=== PATIENT | female | born 1960 | race Native Hawaiian/Other Pacific Islander ===

== ENCOUNTER 2025-05-30 08:28 | Outpatient (CLI) | payer MEDICARE, SELFPAY ==
--- NOTE | 2025-05-30 09:19 | ECG_ITS ---
Test Date: 2025-05-30 09:36:34 Measurements Intervals [place] Rate: 58 P: 57 [place]: 181 QRS: 43 QRSD: 85 T: 153 QT: 399 QTc: 395 Interpretive Statements SINUS BRADYCARDIA POSSIBLE LEFT ATRIAL ENLARGEMENT [-0.1mV P WAVE IN V1/V2] LEFT VENTRICULAR HYPERTROPHY AND ST-T CHANGE [VOLTAGE CRITERIA PLUS ST/T ABNORMALITY] No previous ECG available for comparison Electronically Signed On 05-30-2025 14:43:37 CDT by Donato Celaya M.D.
--- OUTSIDE RECORDS SUMMARY | 2025-05-30 09:40 | XMS_ITS ---
Author Organization [facility] Address [address] [place] [address] Care Team Providers Care Sap Crm Developer Name Role Phone Erasmo Baird MD Unavailable [phone] Darío Peña MD Unavailable [phone] Riya Byrd RN Unavailable Jack Thompson DO Primary Care Provider [phone] Dialysis Access Sites Type Status Location Placement Date Removal Da te Peritoneal Dialysis Catheter Manual Right lower abdomen Inactive Right Abdomen (side) - Lower 08/27/2017 04/02/2024 Procedures Procedure Name Priority Date/Time Associated Diagnosis Comments ALT Routine 05/24/2025 9:23 AM CDT PROTEIN, TOTAL Routine 05/23/2025 9:34 AM CDT BILIRUBIN, TOTAL Routine 05/23/2025 9:25 AM CDT AST Routine 05/23/2025 9:22 AM CDT RENAL FUNCTION PANEL Routine 05/23/2025 8:29 AM CDT CBC WITH AUTO DIFFERENTIAL Routine 05/23/2025 8:29 AM CDT LIPID PANEL Routine 05/23/2025 8:26 AM CDT CBC WITH AUTO DIFFERENTIAL Routine 03/28/2025 8:33 AM CDT PTH Routine 03/28/2025 8:33 AM CDT RENAL FUNCTION PANEL Routine 03/28/2025 8:33 AM CDT BK VIRUS, DNA, QUANTITATIVE Routine 03/28/2025 8:33 AM CDT CBC WITH AUTO DIFFERENTIAL Routine 03/07/2025 12:22 PM CDT RENAL FUNCTION PANEL Routine 03/07/2025 12:22 PM CDT TACROLIMUS LEVEL, RANDOM Routine 03/07/2025 12:22 PM CDT BK VIRUS, DNA, QUANTITATIVE Routine 03/07/2025 12:22 PM CDT POCT URINALYSIS DIPSTICK Routine 03/01/2025 9:22 AM CDT Kidney replaced by transplant HEPATITIS C RNA, QUANTITATIVE, PCR Routine 05/04/2024 10:21 AM CDT Inconclusive laboratory evidence of human immunodeficiency virus (HIV) Aftercare following organ transplant SCREENING MAMMOGRAM 2D BILATERAL Schedule Routine, Read Routine (OP Routine) 08/26/2018 from Last 3 Months or Most Recently Relevant to Health Maintenance Allergies Active Allergy Reactions Criticality Noted Date Comments Bee Pollen Eye irritation Low 02/20/2018 Escitalopram Rash Medium 11/26/2022 Lisinopril Cough Low 09/26/2020 No Known Allergies Other (See comments) Low Reaction: Medications docusate sodium (COLACE) 50 mg capsuleIndications:co nstipation Take 1 capsule (50 mg total) by mouth 2 (two) times a day as needed for constipation Active diphenhydrAMINE 25 mg capsuleIndications:in somnia Take 1 tablet/capsule (25 mg total) by mouth every 6 (six) hours as needed for allergies Active aspirin 81 mg enteric coated tabletIndications:pre vention of thrombosis Take 1 tablet (81 mg total) by mouth daily 30 tablet 11 2023 Active amLODIPine (NORVASC) 10 mg tabletIndications:hyp ertension Take 1 tablet (10 mg total) by mouth daily 90 tablet 1 09/[address] (MYFORTIC) 360 mg EC tabletIndications:Pre vention of Kidney Transplant Rejection Take 1 tablet (360 mg total) by mouth 2 (two) times a day 180 tablet 3 03/01 Active tacrolimus XR (ENVARSUS XR) 1 mg tablet extended release 24 hrIndications:immunos uppression Take 5 tablets (5 mg total) by mouth daily 150 tablet 11 03/08 Active rosuvastatin (CRESTOR) 10 mg tablet Take 1 tablet (10 mg total) by mouth nightly 90 tablet [address] (PROTONIX) 40 mg EC tablet TAKE ONE TABLET BY MOUTH EVERY DAY 30 tablet 2024 Active predniSONE (DELTASONE) 5 mg tablet TAKE ONE TABLET BY MOUTH EVERY DAY 30 tablet 2024 Active Phospha 250 Neutral 250 mg tablet TAKE ONE TABLET BY MOUTH TWICE A DAY 60 tablet 2024 Active cinacalcet (SENSIPAR) 30 mg tablet TAKE ONE TABLET BY MOUTH EVERY DAY 30 tablet 2024 Active sulfamethoxazole-trim ethoprim (BACTRIM DS) 800-160 mg per tabletIndications:Pro phylaxis, Medical,Urinary Tract/Genitourinary Infection Take 1 tablet (160 mg of trimethoprim total) by mouth 3 (three) times a week 05/11 Discontinued cinacalcet (SENSIPAR) 30 mg tabletIndications:hyp ercalcemia due to primary hyperparathyroidism Take 1 tablet (30 mg total) by mouth daily 30 tablet 11 05/11 Discontinued sodium phosphate - potassium phosphate (K-PHOS NEUTRAL) 250 mg tabletIndications:Tj cium Renal Calculi Prevention,hypophosph atemia Take 2 tablets (500 mg total) by mouth 2 (two) times a day with meals 05/11 Discontinued sulfamethoxazole-trim ethoprim (BACTRIM DS) 800-160 mg per tablet TAKE ONE TABLET BY MOUTH EVERY DAY 30 tablet 11 05/11 Discontinued( Therapy completed) Active Problems Patient Care Coordination No te Formatting of this note migh t be different from the original. Discharge Planning: Outpatient Labs: [place] [facility]: [facility]- delayed start Sat 04/09 LAB: [facility] P: [phone]; F: [phone] S/O'S MONTHLY: FK; Q3: ROUTINE (06-15-2025) Verbal Consent - spouse Jeff, and daughter Magy Problem Noted Date Diagnosed Date Complicated UTI (urinary tract infection) 2023 Assessment & Plan (04/29/2024 6:26 PM CDT): Patient presented with chills since 04/18, at ED BP 93/59, labs wbc 5.2, cr 0.96, p 1.7, UA WBC > 50, RBC 11-20, bacteria 2+, LE 3+, protein 2+. CT in ED c/w fat stranding around renal transplant c/f pyelo. Received cefepime and vanc in ED - discontinued vanco on 04/27 - stop iv cefepime - urine growing e coli, sensitive to keflex will plan to discharge today on that to complete total 10 day course - blood cultures NGTD Assessment & Plan (04/27/2024 4:33 AM CDT): Has symptoms of dysuria, chills since 04/18, at ED BP 93/59, labs wbc 5.2, cr 0.96, p 1.7, UA WBC > 50, RBC 11-20, bacteria 2+, LE 3+, protein 2+. Received cefepime and vanc at ED. -cw vanc and cefepime -fw UC and BC, fw MRSA nasal swab -hold home BP meds iso sepsis Hypophosphatemia 04/27/2024 Assessment & Plan (04/28/2024 12:33 PM CDT): Repleting phos orally Assessment & Plan (04/27/2024 4:20 AM CDT): P 1.7, recommended 10 mmol of NaPhos by renal transplant, but couldn't be ordered as its restricted Sw KPhos 500 mg BID Dysuria 04/26/2024 ESRD on peritoneal dialysis 09/03/2023 Hypertensive urgency 09/01/2023 Shortness of breath 09/01/2023 Pre-transplant evaluation for kidney transplant 07/31/2023 Hyperkalemia 05/19/2023 Sinus bradycardia 05/19/2023 Abdominal pain 05/17/2023 Anemia of chronic renal failure 03/19/2023 Renal osteodystrophy 03/19/2023 Secondary hyperparathyroidism of renal origin Iron deficiency anemia, unspecified 03/19/2023 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 01/15/2023 Generalized abdominal pain 10/29/2022 Hypertension, essential 10/29/2022 Assessment & Plan (04/29/2024 6:27 PM CDT): At home on amlodipine 10 mg and carvedilol 12.5 mg BID , Hold home BP meds iso concern for sepsis - resume home amlodipine at discharge, will hold other meds until f/up Assessment & Plan (04/27/2024 4:35 AM CDT): At home on amlodipine 10 mg and carvedilol 12.5 mg BID , Hold home BP meds iso concern for sepsis Suicidal ideation 10/29/2022 Anemia in end-stage renal disease 10/29/2022 Typhlitis 10/28/2022 Chest discomfort 06/23/2022 Mixed hyperlipidemia 06/23/2022 Gastroesophageal reflux disease without esophagi tis 06/23/2022 Renal transplant, status post 05/25/2022 Assessment & Plan (04/29/2024 6:26 PM CDT): 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 US renal with Doppler 04/26- No Doppler evidence of transplant renal artery stenosis. Diffusely increased parenchymal vascularity of the right iliac fossa renal transplant kidney. In the setting of the positive urinalysis and sepsis, findings are concerning for pyelonephritis. 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 US renal with Doppler 04/26- No Doppler evidence of transplant renal artery stenosis.Diffusely increased parenchymal vascularity of the right iliac fossa renal transplant kidney. In the setting of the positive urinalysis and sepsis, findings are concerning for pyelonephritis. Tiny 2.6 cm perinephric fluid collection - fw renal transplant - on tacrolimus 8 daily -tacrolimus target 7-10, fw tacrolimus trough at 5 am (random last night was 17 and morning on 04/25 was 8.9) - cw prednisone 5 mg po daily - hold bactrim of infection prophylaxis while pt is on abx for UTI, cw Valcyte for prophylaxis -hold mycophenolate as per renal transplant - monitor intake/output -ce home Cinacelet 30 mg po daily ESRD (end stage renal disease) 05/25/2022 H/O noncompliance with medic al treatment, presenting hazards to health 12/10/2021 Hypercalcemia 05/16/2021 Assessment & Plan (05/17/2021 10:47 AM CDT): Discussed with Nephrology. Changed phosphate binder to sevelamer and stopped calcitriol. Nephrology expects calcium to slowly improve and recommend discharge Will start 2000 Units vit D Daily per Nephrology recs Assessment & Plan (05/16/2021 11:08 AM CDT): Discussed with Nephrology. Change phosphate binder to sevelamer and stop calcitriol. Check intact PTH and vit D levels. Moderate malnutrition 05/13/2021 Assessment & Plan (05/17/2021 10:48 AM CDT): RD c/s. Appetite much improved last 24-48 hrs Assessment & Plan (05/16/2021 11:07 AM CDT): RD c/s, expect appetite to continue to improve as peritonitis is treated Assessment & Plan (05/15/2021 10:47 AM CDT): RD c/s, expect appetite to improve as peritonitis is treated Assessment & Plan (05/13/2021 1:05 PM CDT): RD c/s Hyponatremia 05/12/2021 Assessment & Plan (05/17/2021 10:46 AM CDT): Likely related to nausea/emesis, poor po intake Sodium as low as 123, now improved to 129 and stable - liberalized fluid intake to no more than 1500 cc/day Assessment & Plan (05/16/2021 11:06 AM CDT): Likely related to nausea/emesis, poor po intake Sodium as low as 123, now improved to 129 and stable - liberalized fluid intake to no more than 1500 cc/day Assessment & Plan (05/15/2021 10:46 AM CDT): Likely related to nausea/emesis, poor po intake Sodium as low as 123, now improved to 129 - liberalize fluid intake to no more than 1500 cc/day Assessment & Plan (05/14/2021 2:17 PM CDT): Likely related to nausea/emesis, poor po intake Sodium down to 123 today - stop IVF - fluid restrict to 1200 cc/day (though she didn't drink excessive fluids over the last 24 hrs) - BMP now and in the am Cachexia 04/08/2021 Elevated troponin 04/08/2021 ESRD (end stage renal disease) on dialysis ([facility]/ [facility]) 10/18/2018 Assessment & Plan (05/17/2021 10:47 AM CDT): 2/2 IgA nephropathy c/b peritonitis in the past and now with recurrent episode Abx as above renal c/s Assessment & Plan (05/16/2021 11:06 AM CDT): 2/2 IgA nephropathy c/b peritonitis in the past and now with recurrent episode Abx as above for now renal c/s Assessment & Plan (05/15/2021 10:46 AM CDT): 2/2 IgA nephropathy c/b peritonitis in the past and now with recurrent episode Abx as above for now renal c/s Assessment & Plan (05/12/2021 4:47 AM CDT): 2/2 IgA nephropathy c/b peritonitis in the past and now with recurrent episode Abx as above for now renal c/s Hypertension 08/16/2018 Assessment & Plan (05/17/2021 10:47 AM CDT): BP elevated in the ED. Cont losartan/amlodipine. Not taking coreg Assessment & Plan (05/16/2021 11:07 AM CDT): BP elevated in the ED. Cont losartan/amlodipine. Not taking coreg Will check orthostatics given lightheadedness -> negative Assessment & Plan (05/15/2021 10:47 AM CDT): BP elevated in the ED. Cont losartan/amlodipine. Not taking coreg Will check orthostatics given lightheadedness Assessment & Plan (05/12/2021 5:44 AM CDT): BP elevated in the ED. Cont losartan/amlodipine. Not taking coreg Nonrheumatic aortic valve insufficiency 11/27/19 17 Overview (03/26/2019): Mild to moderate by echo done in the August 2017. Done in August 2018 showed a mild to moderate aortic insufficiency. Abnormal EKG 08/22/2016 Overview (03/26/2019): Patient had LVH on the EKG Dyslipidemia 08/22/2016 Assessment & Plan (04/28/2024 12:29 PM CDT): Cw home statin Assessment & Plan (04/27/2024 4:19 AM CDT): Cw home statin Immunizations Immunization Administration Dates Next Due Hep B Vaccine 12/04/2017 Hep B, Dialysis 08/12/2017,07/13/2017 Influenza, Quadrivalent, Mara l Culture-based MDCK, Preservative Free, Antibiotic Free, Intramuscular 07/02/2023,05/29/2020 Influenza, Unspecified 06/05/2022,06/04/2021 Pneumococcal Conjugate PCV 13 07/13/2017 Pneumococcal Polysaccharide PPV23 09/21/2017 Social History Tobacco Use Types Packs/Day Years Used Date Smoking Tobacco: Former Cigarettes Q uit: 08/31/1989 Smokeless Tobacco: Never Tobacco Cessation:Counseling Given: Not Answered Alcohol Use Standard Drinks/Week Comments Yes 0 (1 standard drink = 0.6 oz pur e alcohol) rare OASIS D0700: Social Isolation Answer Da te Recorded Frequency of experiencing loneliness or isolatio n Never 05/30/2024 OASIS A1250: Transportation Answer Date Recorded Lack of Transportation (Medical) No 05/30/2024 Lack of Transportation (Non-Medical) No 05/30/2024 Patient Unable or Declines to Respond No 05/30/2024 OASIS B1300: Health Literacy Answer Tye e Recorded Frequency of needing help to read materials from doctor or pharmacy Never 05/30/2024 [facility] Utilities Answer Date Recorded In the past 12 months has th e [employer], gas, oil, or water [place] threatened to shut off services in your home? No 04/27/2024 Humiliation, Afraid, Rape, and Kick questionnair e Answer Date Recorded Within the last year, have y ou been afraid of your partner or ex-partner? Patient declined 04/02/2024 Within the last year, have y ou been humiliated or emotionally abused in other ways by your partner or ex-partner? Patient declined 04/02/2024 Within the last year, have y ou been kicked, hit, slapped, or otherwise physically hurt by your partner or ex-partner? Patient declined 04/02/2024 Within the last year, have y ou been raped or forced to have any kind of sexual activity by your partner or ex-partner? Patient declined 04/02/2024 Social Connection and Isolation Panel Answer Date Recorded In a typical week, how many times do you talk on the phone with family, friends, or neighbors? More than three times a week 04/27/2024 How often do you get togethe r with friends or relatives? Three times a week 04/27/2024 How often do you attend [facility] or tenriism services? Never 04/27/2024 Do you belong to any clubs o r organizations such as muslim groups, unions, fraternal or athletic groups, or school groups? Yes 04/27/2024 How often do you attend meet ings of the clubs or organizations you belong to? More than 4 times per year 04/27/2024 Are you , , di vorced, , never , or living with a partner? 04/27/2024 AUDIT-C Answer Date Recorded Q1: How often do you have a drink containing alcohol? Never 04/02/2024 Q2: How many drinks containi ng alcohol do you have on a typical day when you are drinking? Patient does not drink Q3: How often do you have si x or more drinks on one occasion? Never 04/02/2024 Overall Financial Resource Strain (CARDIA) Answe r Date Recorded How hard is it for you to pa y for the very basics like food, housing, medical care, and heating? Not very hard 04/27/2024 PHQ-2 Answer Date Recorded PHQ-2 Total Score 0 04/27/2024 [facility] - Occupational Stress Questionnaire Answer Date Recorded Do you feel stress - tense, restless, nervous, or anxious, or unable to sleep at night because your mind is troubled all the time - these days? Only a little 04/02/2024 Hunger Vital Sign Answer Date Recorded Within the past 12 months, y ou worried that your food would run out before you got the money to buy more. Never true 04/27/20 24 Within the past 12 months, t he food you bought just didn't last and you didn't have money to get more. Never true 04/27/2024 PRAPARE - Transportation Answer Date Re corded In the past 12 months, has l ack of transportation kept you from medical appointments or from getting medications? No 04/01 In the past 12 months, has l ack of transportation kept you from meetings, work, or from getting things needed for daily living? No 04/27/2024 Housing Stability Vital Sign Answer Tye e Recorded In the last 12 months, was t here a time when you were not able to pay the mortgage or rent on time? No 09/02/2023 In the last 12 months, how many places have you lived? 1 09/02/2023 In the last 12 months, was t here a time when you did not have a steady place to sleep or slept in a group home (including now)? No 09/02/2023 Housing Stability Vital Sign Answer Tye e Recorded In the last 12 months, was t here a time when you were not able to pay the mortgage or rent on time? No 04/27/2024 In the past 12 months, how m any times have you moved where you were living? 2 04/27/2024 At any time in the past 12 m [facility], were you homeless or living in a group home (including now)? No 04/27/2024 Personal Safety Answer Date Recorded Have you ever been in or are you currently in a harmful physical or emotional relationship or is someone making you feel afraid or unsafe? Denies 04/27/2024 Comments No Sex and Gender Information Value Date Recorded Sex Assigned at Not on file Legal Sex Female 2:33 AM [employer] Gender Identity Female 03/24/2024 2:14 PM CDT Sexual Orientation Not on file Last Filed Vital Signs Vital Sign Reading Time Taken Comments Blood Pressure 132/73 03/01/2025 9:07 AM CDT Pulse 64 03/01/2025 9:07 AM CDT Temperature 36.6 C (97.9 F) 03/01/2025 9:07 AM CDT Respiratory Rate 20 03/01/2025 9:07 AM CDT Oxygen Saturation 100% 05/30/2024 9:06 AM CDT Inhaled Oxygen Concentration - - Weight 43.4 kg (95 lb 9.6 oz) 03/01/2025 9:07 AM CDT Height 149.9 cm (4' 11) 03/01/2025 9:07 AM CDT Body Mass Index 19.31 03/01/2025 9:07 AM CDT Results * ALT (05/24/2025 9:23 AM CDT) SCRIBED Alanine Transaminase (ALT) 30 7 - 45 Units/L EXTERNAL LAB Blood Historical Provider MD LAB BLOOD ORDERABLES Edit ed Result - Final EXTERNAL LAB * Protein, total (05/23/2025 9:34 AM CDT) Blood Result [facility] Provider MD LAB BLOOD ORDERABLES Radha l Result * Bilirubin, total (05/23/2025 9:25 AM CDT) SCRIBED Bilirubin, Total 0.9 0.2 - 1.2 mg/dL EXTERNAL LAB Blood Historical Provider MD LAB BLOOD ORDERABLES Edit ed Result - Final EXTERNAL LAB * AST (05/23/2025 9:22 AM CDT) SCRIBED Aspartate Transaminase (AST) 22 10 - 45 Units/L EXTERNAL LAB Blood [facility] Provider MD LAB BLOOD ORDERABLES Edit ed Result - Final Performing Organization Address [facility] Co de Phone Number EXTERNAL LAB * (ABNORMAL) CBC with auto differential (05/23/2025 8:29 AM CDT) SCRIBED WBC 2.47(A) 4.5 - 11.0 K/cumm TXP NO LAB FOUND SCRIBED Hemoglobin 13.8 12.0 - 16.0 g/dL TXP NO LAB FOUND SCRIBED Hematocrit 41.6 38.0 - 48.0 % TXP NO LAB FOUND SCRIBED Platelets 258 130 - 400 K/cumm TXP NO LAB FOUND SCRIBED RBC TXP NO L AB FOUND Comment:- SCRIBED Lymphocytes Abs 0.77(A) 1.00 - 4.80 K/cumm TXP NO LAB FOUND Blood 05/23/2025 8:29 AM CDT [facility] Provider LAB BLOOD ORDERABLES Edit ed Result - Final Performing Organization Address [facility] de Phone Number TXP NO LAB FOUND * (ABNORMAL) Renal function panel (05/23/2025 8:29 AM CDT) SCRIBED Sodium 140 136 - 145 mmol/L TXP NO LAB FOUND SCRIBED Potassium 4.4 3.5 - 5.1 mmol/L TXP NO LAB FOUND SCRIBED Chloride 111 97 - 115 mmol/L TXP NO LAB FOUND SCRIBED Carbon Dioxide 28.3 21 - 32 mmol/L TXP NO LAB FOUND SCRIBED Anion Gap 0.7(A) 2 - 10 mmol/L TXP NO LAB FOUND SCRIBED Urea Nitrogen (BUN) 16 7 - 18 mg/dL TXP NO LAB FOUND SCRIBED Creatinine 0.85 0.55 - 1.02 mg/dL TXP NO LAB FOUND SCRIBED Glucose 108(A) 70 - 99 mg/dL TXP NO LAB FOUND SCRIBED Calcium 10.7(A) 8.5 - 10.1 mg/dL TXP NO LAB FOUND SCRIBED Phosphorus 2.7 2.5 - 4.9 mg/dL TXP NO LAB FOUND SCRIBED Albumin 4.0 3.4 - 5.0 g/dL TXP NO LAB FOUND SCRIBED eGFR 77 >90 mL/min/1.7 3 m2 TXP NO LAB FOUND Blood 05/23/2025 8:29 AM CDT Historical Provider MD LAB BLOOD ORDERABLES Edit ed Result - Final Performing Organization Address [facility] de Phone Number TXP NO LAB FOUND * Lipid panel (05/23/2025 8:26 AM CDT) SCRIBED Cholesterol, Total 156 30 - 199 mg/dL EXTERNAL LAB SCRIBED Triglycerides 63 <=149 mg/dL EXTERNAL LAB SCRIBED HDL 85 >=40 mg/dL EXTERNAL LAB SCRIBED LDL 58 <=129 mg/dL EXTERNAL LAB Scribed Non-HDL Cholesterol 0 NONE mg/dL EXTERNAL LAB SCRIBED Total Cholesterol/HDL Ratio 0 NONE EXTERNAL LAB Blood Historical Provider LAB BLOOD ORDERABLES Edit ed Result - Final Performing Organization Address [facility] de Phone Number EXTERNAL LAB * BK virus, DNA, quantitative Blood (03/28/2025 8:33 AM CDT) SCRIBED BK PCR Quant NOT DETECTED NOT DETECTED copies/mL [facility] Blood 03/28/2025 8:33 AM CDT Historical Provider LAB MICROBIOLOGY - GENERA L ORDERABLES Edited Result - Final Performing Organization Address [facility] de Phone Number [facility] * (ABNORMAL) CBC with auto differential (03/28/2025 8:33 AM CDT) SCRIBED WBC 3.7(A) 4.5 - 11.0 K/cumm TXP NO LAB FOUND SCRIBED Hemoglobin 13.6 12.0 - 16.0 g/dL TXP NO LAB FOUND SCRIBED Hematocrit 42.0 38.0 - 48.0 % TXP NO LAB FOUND SCRIBED Platelets 311 130 - 400 K/cumm TXP NO LAB FOUND SCRIBED RBC TXP NO L AB FOUND Comment:- SCRIBED Lymphocytes Abs 0.9(A) 1.0 - 4.8 K/cumm TXP NO LAB FOUND Blood 03/28/2025 8:33 AM CDT Historical Provider MD LAB BLOOD ORDERABLES Edit ed Result - Final Performing Organization Address [facility] Co de Phone Number TXP NO LAB FOUND * (ABNORMAL) PTH (03/28/2025 8:33 AM CDT) SCRIBED iPTH 200.3(A) 18.4 - 80.1 pg/mL TXP NO LAB FOUND Blood 03/28/2025 8:33 AM CDT Historical Provider LAB BLOOD ORDERABLES Edit ed Result - Final Performing Organization Address [facility] de Phone Number TXP NO LAB FOUND * (ABNORMAL) Renal function panel (03/28/2025 8:33 AM CDT) SCRIBED Calcium 10.3(A) 8.5 - 10.1 mg/dl TXP NO LAB FOUND SCRIBED Phosphorus 2.7 2.5 - 4.9 mg/dl TXP NO LAB FOUND SCRIBED Albumin 3.6 3.4 - 5.0 g/dl TXP NO LAB FOUND SCRIBED Glucose 98 70 - 99 mg/dl TXP NO LAB FOUND SCRIBED Creatinine 0.83 0.55 - 1.02 mg/dl TXP NO LAB FOUND SCRIBED Sodium 142 136 - 145 mmol/L TXP NO LAB FOUND SCRIBED Potassium 4.9 3.5 - 5.1 mmol/L TXP NO LAB FOUND SCRIBED Chloride 112 97 - 115 mmol/L TXP NO LAB FOUND SCRIBED Carbon Dioxide 31.0 21 - 32 mmol/L TXP NO LAB FOUND SCRIBED eGFR 80 >90 ml/min/1.7 3m2 TXP NO LAB FOUND SCRIBED Urea Nitrogen (BUN) 17 7 - 18 mg/dl TXP NO LAB FOUND Blood 03/28/2025 8:33 AM CDT Historical Provider LAB BLOOD ORDERABLES Edit ed Result - Final Performing Organization Address [facility]/ZIP Co de Phone Number TXP NO LAB FOUND * BK virus, DNA, quantitative Blood (03/07/2025 12:22 PM CDT) SCRIBED BK PCR Quant NOT DETECED NOT DETECTED copies/mL [facility] Blood 03/07/2025 12:2 2 PM CDT [facility] Provider LAB MICROBIOLOGY - GENERA L ORDERABLES Final Result Performing Organization Address [facility] Co de Phone Number [facility] * (ABNORMAL) CBC with auto differential (03/07/2025 12:22 PM CDT) SCRIBED WBC 4.0(A) 4.5 - 11.0 K/cumm TXP NO LAB FOUND SCRIBED Hemoglobin 13.4 12.0 - 16.0 g/dL TXP NO LAB FOUND SCRIBED Hematocrit 39.8 38.0 - 48.0 % TXP NO LAB FOUND SCRIBED Platelets 247 130 - 400 K/cumm TXP NO LAB FOUND SCRIBED RBC TXP NO L AB FOUND Comment:- SCRIBED Lymphocytes Abs 1.2 1.0 - 4.8 K/cumm TXP NO LAB FOUND Blood 03/07/2025 12:2 2 PM CDT [facility] Provider LAB BLOOD ORDERABLES Edit ed Result - Final Performing Organization Address [facility]/ZIP Co de Phone Number TXP NO LAB FOUND * Tacrolimus level random (03/07/2025 12:22 PM CDT) SCRIBED Tacrolimus, random 10.3 5.0 - 20.0 MCG/L [facility] Blood 03/07/2025 12:2 2 PM CDT Historical Provider LAB BLOOD ORDERABLES Radha l Result Performing Organization Address [facility]/ZIP Co de Phone Number QUEST * (ABNORMAL) Renal function panel (03/07/2025 12:22 PM CDT) SCRIBED Calcium 10.5(A) 8.5 - 10.1 mg/dl TXP NO LAB FOUND SCRIBED Phosphorus 2.7 2.5 - 4.9 mg/dl TXP NO LAB FOUND SCRIBED Albumin 3.9 3.4 - 5.0 g/dl TXP NO LAB FOUND SCRIBED Glucose 104(A) 70 - 99 mg/dl TXP NO LAB FOUND SCRIBED Creatinine 0.98 0.55 - 1.02 mg/dl TXP NO LAB FOUND SCRIBED Sodium 141 136 - 145 mmol/L TXP NO LAB FOUND SCRIBED Potassium 3.7 3.5 - 5.1 mmol/L TXP NO LAB FOUND SCRIBED Chloride 110 97 - 115 mmol/L TXP NO LAB FOUND SCRIBED Carbon Dioxide 27.9 21 - 32 mmol/L TXP NO LAB FOUND SCRIBED eGFR 65 >90 ML/MIN/1.7 3M2 TXP NO LAB FOUND SCRIBED Urea Nitrogen (BUN) 22(A) 7 - 18 mg/dl TXP NO LAB FOUND Blood 03/07/2025 12:2 2 PM CDT Historical Provider LAB BLOOD ORDERABLES Edit ed Result - Final Performing Organization Address [facility]/ZIP Co de Phone Number TXP NO LAB FOUND * (ABNORMAL) POCT urinalysis dipstick (03/01/2025 9:22 AM CDT) Glucose, ur, POC Negative Negative Bilirubin, ur, POC Negative Negative Ketones, ur, POC Negative Negative Specific [place], POC 1.020 1.003 - 1.030 Blood, ur, POC Negative Negative pH, ur, POC 7.5 5.0 - 8.0 Protein, ur, POC Trace(A) Negative Urobilinogen, urine, POC Comment:0.2 E.U. / dL Nitrite, ur, POC Negative Negative Leukocytes, ur, POC Negative Negative Lot Number [id number] Urine 03/01/2025 9:22 AM CDT Result [facility] Edna Akbar MD POINT OF CARE TEST ORDERABLES Final Result * Hepatitis C (HCV) RNA PCR, quantitative Blood (05/04/2024 10:21 AM CDT) [facility] HCV RNA result Not Detected [facility] Comment: The quantifiable range of this assay is 15 IU/mL to 100,000,000 IU/mL (1.18 log IU/mL to 8.00 log IU/mL). Testing was performed by the LIZZ 6800 HCV Test ([employer] Testing performed at [facility] Current Interpretive Data was last revised on 2021 Blood 05/04/2024 10:2 1 AM CDT 05/04/2024 11:22 AM CDT Narrative [facility] - 05/05/2024 12:39 PM CDT This is a regulatory requirement. Please do not draw before the expected date. These labs must be drawn at a specific time point. Savanna Moe MD LAB MICROBIOLOGY - GENERAL ORDERABLES Final Result [facility] [place] [address] [facility] * Screening Mammogram 2D Bilateral (08/26/2018) Anatomical Region Laterality Modality Breast Bilateral Mammography 08/26/2018 Impressions 08/26/2018 11:16 AM PIPE PULLER [facility] [address] [place] [address] Impression: No mammographic findings of suggestive malignancy us Historical Provider MD IMG MAMMO PROCEDURES Radha l Result from Last 3 Months or Most Recently Relevant to Health Maintenance
--- OUTSIDE RECORDS SUMMARY | 2025-05-30 09:40 | XMS_ITS | Clinical Summary ---
Author Organization [facility] Address [address] [place] [address] Care Team Providers Care Pipeline Gang Supervisor Name Role Phone Erasmo Baird MD Unavailable Darío Peña MD Unavailable [phone] Riya Byrd RN Unavailable Jack Thompson DO Primary Care Provider [phone] Allergies Active Allergy Reactions Criticality Noted Date [...] BY MOUTH EVERY DAY 30 tablet 11 2024 Active predniSONE (DELTASONE) 5 mg tablet TAKE ONE TABLET BY MOUTH EVERY DAY 30 tablet 11 2024 Active Phospha 250 Neutral 250 mg tablet TAKE ONE TABLET BY MOUTH TWICE A DAY 60 tablet 2024 Active cinacalcet (SENSIPAR) 30 mg tablet TAKE ONE TABLET BY MOUTH EVERY DAY 30 tablet 11 2024 Active sulfamethoxazole-trim ethoprim (BACTRIM DS) 800-160 mg per tabletIndications:Pro phylaxis, Medical,Urinary Tract/Genitourinary Infection Take 1 tablet (160 mg of trimethoprim total) by mouth 3 (three) times a week 05/11 Discontinued cinacalcet (SENSIPAR) 30 mg tabletIndications:hyp ercalcemia due to primary hyperparathyroidism Take 1 tablet (30 mg total) by mouth daily 30 tablet 05/11 Discontinued sodium phosphate - potassium phosphate (K-PHOS NEUTRAL) 250 mg tabletIndications:Tj cium Renal Calculi Prevention,hypophosph atemia Take 2 tablets (500 mg total) by mouth 2 (two) times a day with meals 05/11 Discontinued sulfamethoxazole-trim ethoprim (BACTRIM DS) 800-160 mg per tablet TAKE ONE TABLET BY MOUTH EVERY DAY 30 tablet 05/11 Discontinued( Therapy completed) Active Problems Patient Care Coordination No te Formatting of this note migh t be different from the original. Discharge Planning: Outpatient Labs: [facility]: [facility] Home Health- delayed start Sat 04/09 LAB: [facility] P: [phone]; F: [phone] S/O'S MONTHLY: FK; Q3: ROUTINE (06-15-2025) Verbal [...] ESRD (end stage renal disease) on dialysis ([facility]) 10/18/2018 Assessment & Plan (05/17/2021 10:47 AM [...] (04/27/2024 4:19 AM CDT): Cw home statin Resolved Problems Problem Noted Date Diagnosed Date Resolved Date Hypertensive crisis 06/23/2022 10/30/19 23 Hyponatremia 06/23/2022 10/29/2022 Mixed hyperlipidemia 12/10/2021 023 Peritonitis 05/13/2021 10/29/2022 Assessment & Plan (05/17/2021 10:44 AM CDT): Same as recent infection (not finished Tx), but came back 2/2 worsening pain -cx with acinetobacter and Enterobacter, treating with intraperitoneal cefepime. Both organisms are sensitive to cefepime and Cipro. - clinically improved, abd pain is especially improved. - Renal following and appreciate recs - repeat cell count much improved - discussed with Renal fellow again today D/C home to complete 14 total days of antibiotics, Cipro 500 mg Daily Assessment & Plan (05/16/2021 11:06 AM CDT): Same as recent infection (not finished Tx), but came back 2/2 worsening pain -cx with acinetobacter and Enterobacter, treating with intraperitoneal cefepime. Both organisms are sensitive to cefepime and Cipro. - clinically improved, abd pain is especially improved. - Renal following and appreciate recs - repeat cell count much improved - discussed with Renal fellow today, likely change to PO Cipro tomorrow Assessment & Plan (05/15/2021 10:46 AM CDT): Same as recent infection (not finished Tx), but came back 2/2 worsening pain -cx with acinetobacter, treating with intraperitoneal cefepime - clinically improved, abd pain is especially improved. - Renal following and appreciate recs - repeat cell count and culture of PD fluid today Assessment & Plan (05/14/2021 2:18 PM CDT): Same as recent infection (not finished Tx), but came back 2/2 worsening pain -cx with acinetobacter, treating with intraperitoneal cefepime Peritonitis 04/08/2021 10/29/2022 Assessment & Plan (05/12/2021 5:07 AM CDT): CT ab/p 05/09 without acute process. Cultures from [place] ED 05/10 is growing enterobacter cloacae species. -Repeat cultures here pending as are blood cultures -Does have a prior history of peritonitis and cultures grew enterobacter cloacae 03/22/21 s/p treatment with ciprofloxaicn and IP vancomycin. - s/p IV vancomycin, cefepime and metronidazole in the ED, continue -follow up peritoneal culture, blood cultures -po diflucan for ppx -renal c/s Encounters Date Type Department Care Team Description 05/24/2025 Orders Only [facility] Medical Group Cardiology [address] [facility] [address] [address] Provider, MD Yoav 04/10/2025 Orders Only [facility] Transplant Kidney [address] [place] [address] Jozef Mya Transplanted kidney (Primary Dx); Encounter for long-term (current) use of medications 03/29/2025 Telephone [facility] Transplant Kidney [address] [facility] [address] [place], [place] [address] [place] [address] Riya Byrd, GLEN 03/07/2025 Orders Only [facility] Transplant Kidney [address] [facility] [address] [place] [address] Riya Byrd RN Kidney replaced by transplant (Primary Dx) 03/01/2025 8:45 AM CDT Office Visit [facility] Medicine Nephrology [address] [place] [address] 5th [place] [address] [place] [phone] Edna Akbar MD Kidney replaced by transplant (Primary Dx); Encounter for long-term (current) use of high-risk medication; Encounter for aftercare following kidney transplant; Dyslipidemia; Hypertension, unspecified type; Renal osteodystrophy from Last 3 Months Immunizations Immunization Administration Dates Next Due Hep B Vaccine 12/04/2017 Hep B, Dialysis 08/12/2017,07/13/2017 Influenza, Quadrivalent, Mara l Culture-based MDCK, Preservative Free, Antibiotic Free, Intramuscular 07/02/2023,05/29/2020 Influenza, Unspecified 06/05/2022,06/04/2021 Pneumococcal Conjugate PCV 13 07/13/2017 Pneumococcal Polysaccharide PPV23 09/21/2017 Surgical History Surgery Date Site/Laterality Comments COLONOSCOPY PERITONEAL CATHETER INSERTION TUNNELED Medical History Medical History Date Comments HTN (hypertension) Heart murmur Hyperlipidemia Anemia Dysphagia GERD (gastroesophageal reflux disease) Chronic constipation History of transfusion CKD, patient preferred treat ment modality peritoneal dialysis does manual peritoneal dialy sis throughout the day End stage renal disease Anemia in chronic kidney disease Hyperparathyroidism due to r enal insufficiency Dyslipidemia Family History Medical History Relation Name Comments Kidney disease Father Family histor y of kidney disease - (Added by TW Conv) Hypertension Mother Relation Name Status Comments Father Mother Social History Tobacco Use Types Packs/Day Years [...] materials from doctor or pharmacy Never 05/30/2024 [facility] Utilities Answer Date Recorded In the past 12 months has th e [employer], gas, oil, or water [employer] threatened to shut off services in your [...] week 04/27/2024 How often do you attend chur or temple services? Never 04/27/2024 Do you belong to any clubs o r organizations such as bahai groups, unions, fraternal or athletic groups, or [...] Date Recorded PHQ-2 Total Score 0 04/27/2024 [facility] - [...] place to sleep or slept in a mcfp (including now)? No 09/02/2023 Housing Stability Vital Sign Answer Tye e Recorded In the last 12 months, was t here a time when you were not able to pay the mortgage or rent on time? No 04/27/2024 In the past 12 months, how m any times have you moved where you were living? 2 04/27/2024 At any time in the past 12 m [facility], were you homeless or living in a mcfp (including now)? No 04/27/2024 Personal Safety Answer Date Recorded Have you ever been in or are you currently in a harmful physical or emotional relationship or is someone making you feel afraid or unsafe? 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 Gender Identity Female 03/24/2024 2:14 PM CDT Sexual Orientation Not on file Obstetrics History Last Filed Vital Signs Vital Sign Reading [...] Mass Index 19.31 03/01/2025 9:07 AM CDT Plan of Treatment Health Maintenance Due Date Last Done Comments Cervical Cancer Screening 1962 Colon Cancer Screening-Colonoscopy 1962 DTaP/Tdap/Td Vaccine (1 - Tdap) 1973 Regular Well Visit/Exam 18-64 1980 Zoster Vaccine (1 of 2) 1981 Pneumococcal vaccine <65 (3 of 3 - PCV20 or PCV21) 09/21/2022 09/21/2017, 07/13/2017 Depression Screening 04/26/2025 04/26/2024, 11/16/2023, 11/17/2022 Covid-19 Vaccine (4 - 2024-2 6 season) 2025 07/02/2021, 11/23/2020, 10/29/2020 Influenza Vaccine (#1) 2025 , 06/05/2022, 06/04/2021, Additional history exists Breast Cancer Screening-Mammogram 01/27/2026 01/27/2025, 01/27/2025, 08/21/2023, Additional history exists Hepatitis B Screening Completed 04/02/2024 , 12/04/2017, 08/12/2017, Additional history exists Hepatitis C Screening Completed 05/04/2024 , 04/02/2024, 04/02/2024, Additional history exists Medical Devices Implanted Type Area Incident Response Analyst Device Identifier Shelf Expiration Date Model / Serial / Lot Peritoneal Dialysis Catheter Explanted:Qty: 1 on 04/02/2024 by Shanelle Royal MD N/A: Abdomen Explanted Type Area Incident Response Analyst Device Identifier Shelf Expiration Date Model / Serial / Lot [employer] Stent Ureteral Set Double Pigtail Radiopaque Tip [employer] [id number] Polyurethane Hydrophilic Coated [id number] - Sna - [id number] Implanted:Qty: 1 on 04/02/2024 by Shanelle Royal MD at [facility] Explanted:Qty: 1 on 05/04/2024 by Zoey Chin Rai, NP Stent Right: Transplanted Ureter [employer] [id number] 12/01/2026 [id number] / NA / [id number] Procedures Procedure Name Priority Date/Time Associated Diagnosis [...] or Most Recently Relevant to Health Maintenance Results * ALT (05/24/2025 9:23 AM CDT) SCRIBED Alanine Transaminase (ALT) 30 7 - 45 Units/L EXTERNAL LAB Blood Historical Provider MD LAB BLOOD ORDERABLES Edit ed Result - Final EXTERNAL LAB * Protein, total (05/23/2025 9:34 AM CDT) Blood [facility] Provider MD LAB BLOOD ORDERABLES Radha l Result * Bilirubin, total (05/23/2025 9:25 AM CDT) SCRIBED Bilirubin, Total 0.9 0.2 - 1.2 mg/dL EXTERNAL LAB Blood Historical Provider MD LAB BLOOD ORDERABLES Edit ed Result - Final EXTERNAL LAB * AST (05/23/2025 9:22 AM CDT) SCRIBED Aspartate Transaminase (AST) 22 10 - 45 Units/L EXTERNAL LAB Blood Historical Provider LAB BLOOD ORDERABLES Edit ed Result - Final Performing Organization Address [facility] Co de Phone Number EXTERNAL LAB * [...] Blood 05/23/2025 8:29 AM CDT Historical Provider LAB BLOOD ORDERABLES Edit ed Result - Final Performing Organization Address [facility] de Phone Number TXP NO LAB FOUND [...] ed Result - Final Performing Organization Address [facility] de Phone Number TXP NO LAB FOUND * Lipid panel (05/23/2025 8:26 AM CDT) SCRIBED Cholesterol, Total 156 30 - 199 mg/dL EXTERNAL LAB SCRIBED Triglycerides 63 <=149 mg/dL EXTERNAL LAB SCRIBED HDL 85 >=40 mg/dL EXTERNAL LAB SCRIBED LDL 58 <=129 mg/dL EXTERNAL LAB Scribed Non-HDL Cholesterol 0 NONE mg/dL EXTERNAL LAB SCRIBED Total Cholesterol/HDL Ratio 0 NONE EXTERNAL LAB Blood [facility] Provider LAB BLOOD ORDERABLES Edit ed Result - Final Performing Organization Address [facility] de Phone Number EXTERNAL LAB * BK virus, DNA, quantitative Blood (03/28/2025 8:33 AM CDT) SCRIBED BK PCR Quant NOT DETECTED NOT DETECTED copies/mL [facility] Blood 03/28/2025 8:33 AM CDT Historical Provider LAB MICROBIOLOGY - GENERA L ORDERABLES Edited Result - Final Performing Organization Address [facility] de Phone Number [facility] * (ABNORMAL) CBC [...] ed Result - Final Performing Organization Address [facility] Co de Phone Number TXP NO LAB FOUND * (ABNORMAL) PTH (03/28/2025 8:33 AM CDT) SCRIBED iPTH 200.3(A) 18.4 - 80.1 pg/mL TXP NO LAB FOUND Blood 03/28/2025 8:33 AM CDT Historical Provider MD LAB BLOOD ORDERABLES Edit ed Result - Final Performing Organization Address [facility] de Phone Number TXP NO LAB FOUND [...] ed Result - Final Performing Organization Address [facility]/ZIP Co de Phone Number TXP NO LAB FOUND * BK virus, DNA, quantitative Blood (03/07/2025 12:22 PM CDT) SCRIBED BK PCR Quant NOT DETECED NOT DETECTED copies/mL [facility] Blood 03/07/2025 12:2 2 PM CDT Historical Provider LAB MICROBIOLOGY - GENERA L ORDERABLES Final Result Performing Organization Address [facility] Co de Phone Number [facility] * (ABNORMAL) [...] ed Result - Final Performing Organization Address [facility]/ZIP Co de Phone Number TXP NO LAB FOUND * Tacrolimus level random (03/07/2025 12:22 PM CDT) SCRIBED Tacrolimus, random 10.3 5.0 - 20.0 MCG/L [facility] Blood 03/07/2025 12:2 2 PM CDT Historical Provider LAB BLOOD ORDERABLES Radha l Result [facility] * (ABNORMAL) Renal function panel (03/07/2025 [...] ed Result - Final Performing Organization Address [facility]/ZIP Co de Phone Number TXP NO LAB FOUND * (ABNORMAL) POCT urinalysis dipstick (03/01/2025 9:22 AM CDT) Glucose, ur, POC Negative Negative Bilirubin, ur, POC Negative Negative Ketones, ur, POC Negative Negative Specific [place], POC 1.020 1.003 - 1.030 Blood, ur, POC Negative Negative pH, ur, POC 7.5 5.0 - 8.0 Protein, ur, POC Trace(A) Negative Urobilinogen, urine, POC Comment:0.2 E.U. / dL Nitrite, ur, POC Negative Negative Leukocytes, ur, POC Negative Negative Lot Number [id number] Urine 03/01/2025 9:[address] [facility] Edna Akbar MD POINT OF CARE TEST ORDERABLES Final Result * Hepatitis C (HCV) RNA PCR, quantitative Blood (05/04/2024 10:21 AM CDT) [facility] HCV RNA result Not Detected [facility] Comment: The quantifiable range of this assay is 15 IU/mL to 100,000,000 IU/mL (1.18 log IU/mL to 8.00 log IU/mL). Testing was performed by the LIZZ 6800 HCV Test ([employer] Testing performed at [facility] Current Interpretive Data was last revised on 2021 Blood 05/04/2024 10:2 1 AM CDT 05/04/2024 11:22 AM CDT Narrative [facility] - 05/05/2024 12:39 PM CDT This is a regulatory requirement. Please do not draw before the expected date. These labs must be drawn at a specific time point. Savanna Moe MD LAB MICROBIOLOGY - GENERAL ORDERABLES Final Result [facility] One [facility] [place] [address] [facility] * Screening Mammogram 2D Bilateral (08/26/2018) Anatomical Region Laterality Modality Breast Bilateral Mammography 08/26/2018 Impressions 08/26/2018 11:16 AM ASSISTANT HVAC MECHANIC [facility] [address] [place] [address] Impression: No mammographic findings of suggestive malignancy us Historical Provider MD CONNELLY MAMMO PROCEDURES Radha l Result from Last 3 Months or Most Recently Relevant to Health Maintenance Insurance MEDICARE [employer] MEDICARE PPO [employer] [place] [place] [id number] Advance Directives For more information, please contact: [phone] * Full Code (Latest Code Status on File) Date Activated Date Inactivated Comments 04/27/2024 3:08 AM 04/29/2024 7:11 PM * Full Code Date Activated Date Inactivated Comments 04/02/2024 11:58 PM 04/05/2024 8:52 PM * Full Code Date Activated Date Inactivated Comments 04/02/2024 9:56 AM 04/02/2024 11:58 PM * Full Code Date Activated Date Inactivated Comments 09/01/2023 11:54 AM 09/03/2023 9:01 PM * Full Code Date Activated Date Inactivated Comments 05/18/2023 12:50 AM 05/19/2023 9:53 PM Healthcare Agents on File Name Relationship Healthcare Agent Relationship Communication Magy Scott Daughter Health Care Agent Care Teams Pipeline Gang Supervisor Relationship Specialty Start Date End Date Jack Thompson DO [address] [address] PCP - General Internal Medicine 04/28/24 Erasmo Baird MD [address] [facility] [place] [address] Choral Director Cardiology 09/27/19 Darío Peña MD [address] [place] [address] Referring Physician Nephrology 12/09/23 Riya Byrd, RN [address] [id number] Multi Disciplined Language Analyst 04/04/24
--- OUTSIDE RECORDS SUMMARY | 2025-05-30 09:40 | XMS_ITS | Encounter Summary ---
Author Organization [facility] Address [address] [place] [address] Phone Care Team Providers Care Wire Stitcher Name Role Phone Cinda Esposito MD Primary Care Provider [phone] Abhilash Soto RN Unavailable [phone] Erasmo Baird MD Unavailable [phone] Judith Eagle DO Primary Care Provider + [phone] Cinda Huang RN Unavailable [phone] Jaquelin Alejandre RN Unavailable Unavailable Analisa Stahl RN Unavailable [phone] Stefani Boswell RN Unavailable UnavailKarol BeltranW Unavailable Un available Darío Peña MD Unavailable [phone] Unavailable [phone] Riya Byrd RN Unavailable [phone] Jack Thompson DO Primary Care Provider + [phone] Encounter Details Date Type Department Care Team (Late st Contact Info) Description 03/19/[address] [facility] Medicine Nephrology [address] [facility] 5th [place] [address] [place] [address] Unknown, Notinfile Social History Tobacco Use Types Packs/Day Years Used Date Smoking Tobacco: Former Comments Unknown Sex and Gender Information Value Date Recorded Sex Assigned at Not on file Legal Sex Female 2:33 AM SIGN LANGUAGE TRANSLATOR Gender Identity Female 03/24/2024 2:14 PM CDT Sexual Orientation Not on file documented as of this encounter Ordered Prescriptions Prescription Sig Dispense Quantity Refills Last Filled Start Date End Date darbepoetin adelina (Aranesp, in polysorbate,) 60 mcg/0.3 mL syringe 60 MCG q2wk 60mcq q2w 60 mcg 03/19/2020 05/17/2021 documented in this encounter Plan of Treatment Not on file documented as of this encounter Visit Diagnoses Not on filedocumented in this encounter Additional Health Concerns Infection Onset Date Last Indicated Resolved Time COVID: Suspected 10/05/2021 10/05/2021 10/05/2021 8:32 AM SIGN LANGUAGE TRANSLATOR COVID: Suspected 10/28/2022 10/28/2022 10/28/2022 4:04 PM SIGN LANGUAGE TRANSLATOR COVID: Suspected 09/01/2023 09/01/2023 09/01/2023 6:54 AM SIGN LANGUAGE TRANSLATOR COVID: Suspected 01/03/2024 01/03/2024 01/03/2024 8:44 AM CDT documented as of this encounter Care Teams Wire Stitcher Relationship Specialty Start Date End Date Cinda Esposito MD PCP - General 07/13/17 04/01/20 Judith Eagle DO [address] [facility] [place] [address] PCP - General Family Medicine 04/02/20 04/27/24 Jack Thompson DO [address] [address] PCP - General Internal Medicine 04/28/24 Abhilash Soto, RN [address] [address] [place] [address] Hand Bindery Assembly Worker 07/06/18 Erasmo Baird MD [address] [facility] [address] [place] [address] [address] Solderer Barrel Ribs Cardiology 09/27/19 Cinda Huang RN [address] [facility] [address] [place] [id number] Secondary Pre Kidney Coordinator 11/28/22 01/17/23 Jaquelin Alejandre RN Registered Nurse Nephrology 12/02/22 04/04/24 Analisa Stahl, GLEN [address] [facility] [phone] [place], [place] [phone] Hand Bindery Assembly Worker 01/18/23 3 Yearout, Stefani Baez RN Hand Bindery Assembly Worker 02/27/2304/03/24 Karol Metzger [facility] Custom Shop Worker Nephrology 08/17/17 04/04/24 Darío Peña MD [address] [facility] 5C DIV IM NEPHROLOGY [place], [place] [id number] Referring Physician Nephrology 12/09/23 Franca Carrillo, ELLA [address] [facility] [address] [place], [place] [id number] Dietitian Nephrology 08/17/17 04/04/24 Riya Byrd RN [address] [id number] Hand Bindery Assembly Worker 04/04/24 documented as of this encounter
--- OUTSIDE RECORDS SUMMARY | 2025-05-30 09:40 | XMS_ITS | Patient Health Record ---
Author Organization [address] [facility] Address [address] [facility] [address] [place] [address] Care Team Providers Care Technical Account Executive Name Role Phone Judith Eagle Primary Care Provider Unavailab Franca Arnold Unavailable [phone] Allergies No Known Allergies Reason For Referral No Information Medications Medication SIG (Take, Route, Fr equency, Duration) Notes Start Date End Date Status Gentamicin Sulfate A ctive Tylenol Active [place] Caps Active Social History Tobacco Use: Social History Observation Description Date Details (start date - stop date) Former Smoker NA - NA Social History Tobacco Use: Social Info Question Answer Notes Tobacco Use/Smoking Are you a former smoker How long has it been since you last smoked? > 10 years Additional Details Category Social Info Options Details Miscellaneous: Exercise: Moderate Occupation: Retired Living with: spouse Drugs/Alcohol: Alcohol use: Social alcoho l use Plan Of Treatment No Information Insurance Providers Payer Name Payer Address Payer Phone Subscriber Number Group Number Insured Name Patient Relationship to Insured Coverage Start Date Coverage End Date Medicare [address] [facility] [place] [id number] Lurdes Scott Self - patient is the insured for Life [address] [place] [address] [id number] Lurdes Scott Self - patient is the insured Medical (General) History Medical History History ICD Code anemia, high cholesterol, hi gh blood pressure, kidney disease-dialysis, migraines Surgical History Surgery Date(Month/Year)
--- OUTSIDE RECORDS SUMMARY | 2025-05-30 09:40 | XMS_ITS | Encounter Summary ---
Author Organization [facility] Facility Care Team Providers Care Missile And Missile Checkout Technician Name Role Phone Zenia Doss MD Primary Care Provider [phone] Cinda Esposito MD Primary Care Provider + [phone] Zenia Doss MD Primary Care Provider [phone] Cinda Esposito MD Primary Care Provider [phone] Zenia Doss MD Primary Care Provider [phone] Cinda Esposito MD Primary Care Provider + [phone] Zenia Dsos MD Primary Care Provider [phone] Cinda Esposito MD Primary Care Provider + [phone] Cinda Huang RN Unavailable [phone] Ewelina Valdez Unavailable Unavail able Lien Thompson RN Unavailable Abhilash Soto RN Unavailable [phone] Erasmo Baird MD Unavailable [phone] Judith Eagle DO Primary Care Provider [phone] Cinda Huang RN Unavailable [phone] Alejandre, [place] RN Unavailable Unavailable Analisa Stahl RN Unavailable [phone] Yearout Stefani Baez RN Unavailable UnavailKarol Beltran DIRECTOR OF PRODUCT MARKETING Unavailable Un available Darío Peña MD Unavailable [phone] Unavailable [phone] Riya Byrd RN Unavailable [phone] Jack Thompson DO Primary Care Provider [phone] Encounter Details Date Type Department Care Team (Latest Contact Info) Description 08/21/2016 Orders Only [facility] Provider, MD Yoav [address] [place] [address] Social History Tobacco Use Types Packs/Day Years Used Date Smoking Tobacco: Never Assessed Comments Unknown Sex and Gender Information Value Date Recorded Sex Assigned at Not on file Legal Sex 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 Historical Provider Final Res ult documented in this encounter Visit Diagnoses Not on filedocumented in this encounter Additional Health Concerns Infection Onset Date Last Indicated Resolved Time COVID: Suspected 10/05/2021 10/05/2021 10/05/2021 8:32 AM TELE MARKETING EXECUTIVE COVID: Suspected 10/28/2022 10/28/2022 10/28/2022 4:04 PM TELE MARKETING EXECUTIVE COVID: Suspected 09/01/2023 09/01/2023 09/01/2023 6:54 AM TELE MARKETING EXECUTIVE COVID: Suspected 01/03/2024 01/03/2024 01/03/2024 8:44 AM CDT documented as of this encounter Care Teams Missile And Missile Checkout Technician Relationship Specialty Start Date End Date Zenia Doss MD PCP - General 01/21/17 03/01/17 Cinda Esposito MD PCP - General 03/02/17 03/04/17 Zenia Doss MD PCP - General 03/05/17 03/23/17 Cinda Esposito MD PCP - General 03/24/17 04/02/17 Zenia Doss MD PCP - General 04/03/17 04/06/17 Cinda Esposito MD PCP - General 04/07/17 04/14/17 Zenia Doss MD PCP - General 04/15/17 07/12/17 Cinda Esposito MD PCP - General 07/13/17 04/01/20 Judith Eagle DO [address] [facility] [address] [place] [place] [address] PCP - General Family Medicine 04/02/20 04/27/24 Jack Thompson DO [address] [address] PCP - General Internal Medicine 04/28/24 Cinda Huang, RN [address] [address] Systems Navigator 01/26/18 8 Ewelina Valdez Systems Navigator 02/05/18 02/21/18 Lien Thompson RN [address] [address] Systems Navigator 02/22/18 Abhilash Soto, GLEN [address] [address] Systems Navigator 07/06/18 Erasmo Baird MD [address] [address] News Production Assistant Cardiology 09/27/19 Cinda Huang RN [address] [address] Secondary Pre Kidney Coordinator 11/28/22 01/17/23 Jaquelin Alejandre, RN Registered Nurse Nephrology 12/02/22 04/04/24 Analisa Stahl RN [address] [facility] [phone] [place] [address] Systems Navigator 01/18/23 3 YearoutStefani, presser handSystems Navigator 02/27/2304/03/24 Karol Metzger LCSW Neonatal Intensive Care Nurse Nephrology 08/17/17 04/04/24 Darío Peña MD [address] [facility] 5C [place] [address] Referring Physician Nephrology 12/09/[address] [facility] [address] [place] [address] Dietitian Nephrology 08/17/17 04/04/24 Riya Byrd, RN [address] [facility] [address] [place] [address] Systems Navigator 04/04/24 documented as of this encounter
--- OUTSIDE RECORDS SUMMARY | 2025-05-30 09:40 | XMS_ITS ---
Author Organization [facility] Address [address] [place] [address] Care Team Providers Care Airplane Pilot Chief Name Role Phone Erasmo Baird MD Unavailable [phone] Darío Peña MD Unavailable [phone] Riya Byrd RN Unavailable [phone] Jack Thompson DO Primary Care Provider [phone] Transplant Episode Kidney Recipient [facility] ([place], [place]) [facility] Organ Received: Left Kidney Transplanted on 04/02/2024 Marked as Active Follow-up on 04/02/2024 Reason: Transplanted at [facility] Kidney CoordinatorRiya Byrd RN Fax: N/A Email: N/A [place] Organ Diagnosis Organ Primary Contributory Kidney IgA Nephropathy Retransplant Diagnosis Organ Primary Contributory Kidney IgA Nephropathy Infection History Noted Survival Infection Treatment Organism Resolved 04/27/2024 25 days Complicated UTI (urinary tract infection) Donor Information Organ ABO Source Meets Risk Criteria HLA Match Mismatches Cross Match Left Kidney Transplanted O DBD Yes A: B: DR: Left Kidney Donor Serology Results Anti-CMV CMV IgG: Positive EBV IgG EBV VCA IgG: Positive Anti-HBcAb HBC Total: Negative HBsAg HBsAg: Negative HBV DNA No results on file Anti-HCV HCV: Negative Anti-HIV I/II No results on file Anti-HTLV I/II HTLV: Not Done RPR/VDRL RPR: Positive EBV IgM EBV VCA IgM: Not Done HBsAb HBsAb: Not Done EBNA No results on file SARS CoV-2 No results on file Care Team Name Role Phone Fax Email Riya Byrd, RN Kidney Coordinator [phone] N/ A N/A Riya Byrd, delivery professionalVp Ancillary [phone] N/A N/A Mya Haskins Primary Business Programmer N/A N/A N/A Claudia Edge Secondary Business Programmer N/A N/A N/A Savanna Moe MD Transplant Potato Chip Sorter [phone] N/A Eugenio Ledesma RN Secondary Coordinator Secondary Post Kidney Coordinator N/A N/A N/A Sara Alford Housing Assistant [phone] N/A N/A Events Post-Transplant Pre-Transplant Admitted: 04/02/2024 Referred: 04/15/2017 Transplanted: 04/02/2024 Evaluation began: 7 Discharged: 04/05/2024 Committee: 11/10/2022 Center waitlisted: 7 Dialysis History Dialysis History Start End Type Comments Center 08/17/2017 04/02/2024 Peritoneal [facility] 08/17/2017 04/02/2024 Continuous Ambul atory Peritoneal Dialysis [facility] [address] D[facility] Center Information Center Phone Fax Address [facility] [phone] [address] [facility] [address] [facility] [address] [facility] [address]
[2025-05-30 09:54] LABS: INR 1.0; Prothrombin Time 13.2 Seconds (11.1-14.7)
[2025-05-30 09:55] LABS: Partial Thromboplastin Time 32.5 Seconds (22.3-36.8)
[2025-05-30 10:03] LABS: Anion Gap 7 mmol/L (4-12); Blood Urea Nitrogen 17 mg/dL (7-17); Calcium 10.5 mg/dL (8.4-10.2); Carbon Dioxide 26 mmol/L (22-30); Chloride 106 mmol/L (98-107); Estimated Glomerular Filt Rate > 60; Glucose 98 mg/dL (65-110); Potassium 4.1 mmol/L (3.4-5.0); Sodium 139 mmol/L (137-145)
== END 2025-05-30 08:29 | disposition home or self-care (01) ==
LOC: ANHSURGERY 09:10
PROVIDERS: Anesthesiology; Visit Provider Surgery Plastic and Reconstructive Surgery
DX: Z01.818 Encounter for other preprocedural examination (principal); I12.9 Hypertensive chronic kidney disease with stage 1 through stage 4 chronic kidney disease, or unspecified chronic kidney disease; R94.31 Abnormal electrocardiogram [ECG] [EKG]
CPT/HCPCS: 36415; 80048; 85610; 85730; 93005

== ENCOUNTER 2025-06-02 00:29 | Day surgery (SDC) | payer MEDICARE, SELFPAY ==
[2025-05-19 15:09] VITALS: BMI 19.3
--- NOTE | 2025-05-19 15:10 | PC.NURSE ---
[facility] has started construction of its new state of the art ER which will open Spring 2026. With this, we anticipate parking may be a challenge for some our surgical patients and families. Parking spaces are limited but are available for all Surgical, obstetrics, and ER patients sharing this lot. If you arrive and find you are having a hard time finding a parking space, please note that we understand the challenges, please drive around the hospital and park near Hospital Entrance 1. When you enter this entrance, you can ask a volunteer to direct or take you back to the surgical waiting area to check in. We appreciate everyone?s understanding of these expected challenges while we build for your future. Report to the Outpatient Waiting Room, entrance under the green pavilion located off [address], at time _0600_ on date _[phone]_. Planned Procedure Time: _0730_.? Time changes happen often and if your time is changed the preop area will call you the afternoon before. - You and your visitor will be asked to self-screen and do not enter if you have any COVID symptoms. Please call surgeon if you need to reschedule. - A mask is optional within the hospital at this time. Patients may have clear liquids (water, carbonated beverages, clear teas, apple juice) until 3 hours prior to surgery with a maximum of 20 ounces. - No food from midnight until time of surgery and no smoking, or chewing tobacco (or any form of nicotine). No chewing gum, candy or mints. Take only the following medications with a SIP of water on the morning of surgery: ___Prednisone, Amlodipine, Mycophenolate and Envarsus.____ DO NOT STOP ANY OF YOUR OTHER PRESCRIPTION MEDICATIONS PRIOR TO SURGERY EXCEPT THE FOLLOWING Hold all vitamins and supplements for 3 days per anesthesiologist. Medications to discontinue per physician ____Hold Aspirin per Dr Kay's instructions____ Date to take last dose Please no make-up, nail chinese, hairspray, perfume, deodorant, or body powder the day of surgery.? No jewelry (including any body piercings) or valuables the day of surgery, leave them at home.? Please take a shower or bath the night before, or the morning of, surgery with an antibacterial soap.? Wear comfortable, loose fitting clothing.? - Jewelry must be removed prior to entering the operating room.? Rings and piercings that are not removed may be cut off. - The hospital will not accept responsibility for valuables.? - Please leave all valuables, including medications, at home the day of surgery. If you are going home after surgery, a licensed trailer truck driver must drive you home.? - NO public transportation without another adult if you receive anesthesia. - We recommend that an adult stay with you for 24 hours following discharge. - We also recommend that you do not drive, make important decision, drink alcoholic beverages, or take any drugs that were not prescribed by your health care provider for at least 24 hours after your discharge time. Follow any additional instructions given to you from your surgeon. Telephone instructions given to __Rohith___and asked if any additional questions and then verbalized understanding. Patient advised to call surgeon office or pre surgery nurse liaison [phone] if any additional questions.
--- OUTSIDE RECORDS SUMMARY | 2025-06-01 10:45 | XMS_ITS | Encounter Summary ---
Author Organization [facility] Address [address] [place] [address] Phone Care Team Providers Care Delivery Person Name Role Phone Erasmo Baird MD Unavailable Darío Peña MD Unavailable [phone] Riya Byrd RN Unavailable [phone] Jack Thompson DO Primary Care Provider [phone] Reason for Visit * Consultation (Routine) - Authorized Specialty Diagnoses / Procedures Referred By Contshankar t Referred To Contact Nephrology Diagnoses Kidney replaced by transplant Jack Thompson DO [address] [place] [address] Phone: tel: fax: [facility] (All Locations) Referral ID Status Reason Start Date Expiration Date Visits Requested Visits Authorized [id number] Authorized Specialty Services Required 05/17/2025 06/16/2026 12 12 Encounter Details Date Type Department Care Team (Late st Contact Info) Description 06/01/2025 10:45 AM CDT Office Visit [facility] Medicine Nephrology [address] [facility] 5th [place] [address] [place] [address] Isidro Nava MD [address] [place] [address] Kidney replaced by transplant (Primary Dx) Social History Tobacco Use Types Packs/Day Years Used Date Smoking Tobacco: Former Cigarettes Q uit: 08/31/1989 Smokeless Tobacco: Never Alcohol Use Standard Drinks/Week Comments Yes 0 [...] materials from doctor or pharmacy Never 05/30/2024 [facility] Utilities Answer Date Recorded In the past 12 months has [facility] [employer], [employer], or water [email or web address] threatened to shut off services in your [...] week 04/27/2024 How often do you attend [facility] or synagogue services? Never 04/27/2024 Do you belong to any clubs o r organizations such as yarsanism groups, unions, fraternal or athletic groups, or [...] Date Recorded PHQ-2 Total Score 0 04/27/2024 [facility] - Occupational Stress Questionnaire Answer Date Recorded [...] place to sleep or slept in a jail (including now)? No 09/02/2023 Housing Stability Vital Sign Answer Tye e Recorded In the last 12 months, was t here a time when you were not able to pay the mortgage or rent on time? No 04/27/2024 In the past 12 months, how m any times have you moved where you were living? 2 04/27/2024 At any time in the past 12 m [facility], were you homeless or living in a jail (including now)? No 04/27/2024 Personal Safety Answer Date Recorded Have you ever been in or are you currently in a harmful physical or emotional relationship or is someone making you feel afraid or unsafe? 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 Gender Identity Female 03/24/2024 2:14 PM CDT Sexual Orientation Not on file documented as of this encounter Last Filed Vital Signs Vital Sign Reading Time Taken Comments Blood Pressure 134/73 06/01/2025 10:39 AM CDT Pulse 67 06/01/2025 10:39 AM CDT Temperature 36.8 C (98.2 F) 06/01/2025 10:39 AM CDT Respiratory Rate - - Oxygen Saturation - - Inhaled Oxygen Concentration - - Weight 43 kg (94 lb 12.8 oz) 06/01/2025 10:39 AM CDT Height 149.9 cm (4' 11) 06/01/2025 10:39 AM CDT Body Mass Index 19.15 06/01/2025 10:39 AM CDT documented in this encounter Patient Instructions * Patient Instructions* Isidro Nava MD - 06/01/2025 10:45 AM CDT Please decrease Myfortic to 360 mg daily. Stop Kphos tabs. Increase sensipar to 60 mg daily. Pleasedo labs every two weeks. documented in this encounter Ordered Prescriptions Prescription Sig Dispense Quantity Refills Last Filled Start Date End Date mycophenolate sodium DR (MYFORTIC) 360 mg EC tabletIndications: Prevention of Kidney Transplant Rejection Take 1 tablet (360 mg total) by mouth daily 06/01/2025 cinacalcet (SENSIPAR) 60 mg tabletIndications: Kidney replaced by transplant Take 1 tablet (60 mg total) by mouth daily 30 tablet 11 06/01/2025 06/01/2026 documented in this encounter Progress Notes * Huma Gonzales, [facility] - 06/01/2025 10:45 AM CDT Abdominal Transplant Pharmacist Post-Transplant Clinic Note 64 y.o. 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 Additional Concerns/Issues Identified and Addressed by Clinical Manager Student Services - Kidney function stable. No issues with urination or UTI symptoms. - WBC decreased to 2.47 from 3.7. Currently on Myfortic 360 mg BID. Decrease Myfortic to 360 mg daily. - Tacrolimus trough 4.5 ng/mL on 05/23 on Envarsus 5 mg daily. No headaches or tremors. - Calcium 10.7 mg/dL and PTH 200.3. Currently on cinacalcet from 30 mg to 60 mg daily. - Total cholesterol 156 mg/dL, LDL 58 mg/dL, and triglycerides 63 mg/dL on rosuvastatin 10 mg daily. - BP 134/73 mmHg and HR 67 bpm. BP at home 120s/80s mmHg at home. Continue amlodipine 10 mg daily. - Phosphorus 2.7 mg/dL - okay to stop Kphos tabs. Lurdes Scott is a 64 y.o. female transplanted on 04/02/2024 (Kidney) who is POD 425 from transplantation presenting to post-transplant clinic appointment on 06/01/25 to meet with the solid organ transplant clinical clinical pharmacy manager. The clinical clinical pharmacy manager reviewed the current medication list, medication timing/administration, and post-transplant log sheets with the patient and caregiver(s). Additional medication education was provided where needed. Allergies Allergies Allergen Reactions Lexapro [Escitalopram] Rash Bee Pollen Eye irritation Lisinopril Cough No Known Allergies Other (See comments) Reaction: Current Home Medication List Prior to Admission medications Medication Sig Start Date End Date Taking? Authorizing Provider amLODIPine (NORVASC) 10 mg tablet Take 1 tablet (10 mg total) by mouth daily 09/13/24 09/13/25 Erasmo Baird MD aspirin 81 mg enteric coated tablet Take 1 tablet (81 mg total) by mouth daily 04/04/24 04/04/25 Edna Akbar MD cinacalcet (SENSIPAR) 30 mg tablet TAKE ONE TABLET BY MOUTH EVERY DAY 05/11/25 Isidro Nava MD diphenhydrAMINE 25 mg capsule Take 1 tablet/capsule (25 mg total) by mouth every 6 (six) hours as needed for allergies Yoav Caballero MD docusate sodium (COLACE) 50 mg capsule Take 1 capsule (50 mg total) by mouth 2 (two) times a day asneeded for constipation ProviderYoav MD mycophenolate sodium (MYFORTIC) 360 mg EC tablet Take 1 tablet (360 mg total) by mouth 2 (two) times a day 03/01/25 03/01/26 Edna Akbar MD pantoprazole DR (PROTONIX) 40 mg EC tablet TAKE ONE TABLET BY MOUTH EVERY DAY 04/10/25 Edna Akbar MD Phospha 250 Neutral 250 mg tablet TAKE ONE TABLET BY MOUTH TWICE A DAY 05/11/25 Isidro Nava MD predniSONE (DELTASONE) 5 mg tablet TAKE ONE TABLET BY MOUTH EVERY DAY 04/10/25 Edna Akbar MD rosuvastatin (CRESTOR) 10 mg tablet Take 1 tablet (10 mg total) by mouth nightly 03/22/25 Erasmo Baird MD tacrolimus XR (ENVARSUS XR) 1 mg tablet extended release 24 hr Take 5 tablets (5 mg total) by mouthdaily 03/08/25 03/08/26 Edna Akbar MD Karli Kurwicki, PharmD, BCPS, BCTXP Solid Organ Transplant Clinical Manager Student Services * Isidro Nava MD - 06/01/2025 10:45 AM CDT Images from the original note were not included. POST KIDNEY TRANSPLANT NOTE HISTORY OF PRESENT ILLNESS: Lurdes Scott is a 64 y.o. 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 She returnstoday for continued care of her renal allograft, immunosuppression management, and other related medical issues. PROBLEM LIST: 1. 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 Peña s/p DDT (Syphilis +) 04/02/24, Dr. Royal <Dr. Nava>. , KDPI 41% cPRA 92%, CIT 22hrs/5min. CMV +/+,EBV+. Thymo 5mg/kg. IMS: EnXR, MPA, pred per taper. D/c on POD 3 w/Scr 0.92 2. Anemia. 3. Hypertension. Hospitalizations for hypertensive urgency 4. Renal osteodystrophy. 5. GERD 6. Depression/Anxiety disorder. Hospitalized for suicidal ideation October 2022. Subsequent followup with psychiatrist Letitia Solmian and Dereje Cai with [facility]. 7. Typhlitis October 2022 8. Dyslipidemia 9. Aortic regurgitation, aortic stenosis, mitral and tricuspid regurgitation CURRENT VISIT/REVIEW OF SYSTEMS: Lurdes Scott reports feeling generally well. She denies SOB, chest pain, nausea, vomiting, diarrhea, abdominal pain, LUTS, swelling, fevers/chills/rigors. No side-effects of IMS reported such as tremors, headaches or insomnia. Reports compliance with immunosuppression. All other systems negative. CURRENT MEDICATIONS: Current Outpatient Medications: amLODIPine (NORVASC) 10 mg tablet, Take 1 tablet (10 mg total) by mouth daily, Disp: 90 tablet, Rfl: 1 aspirin 81 mg enteric coated tablet, Take 1 tablet (81 mg total) by mouth daily, Disp: 30 tablet, Rfl: 11 cinacalcet (SENSIPAR) 30 mg tablet, TAKE ONE TABLET BY MOUTH EVERY DAY, Disp: 30 tablet, Rfl: 11 diphenhydrAMINE 25 mg capsule, Take 1 tablet/capsule (25 mg total) by mouth every 6 (six) hours as needed for allergies, Disp: , Rfl: docusate sodium (COLACE) 50 mg capsule, Take 1 capsule (50 mg total) by mouth 2 (two) times a day as needed for constipation, Disp: , Rfl: mycophenolate sodium DR (MYFORTIC) 360 mg EC tablet, Take 1 tablet (360 mg total) by mouth 2 (two) times a day, Disp: 180 tablet, Rfl: [address] (PROTONIX) 40 mg EC tablet, TAKE ONE TABLET BY MOUTH EVERY DAY, Disp: 30 tablet, Rfl: 11 Phospha 250 Neutral 250 mg tablet, TAKE ONE TABLET BY MOUTH TWICE A DAY, Disp: 60 tablet, Rfl: 11 predniSONE (DELTASONE) 5 mg tablet, TAKE ONE TABLET BY MOUTH EVERY DAY, Disp: 30 tablet, Rfl: 11 rosuvastatin (CRESTOR) 10 mg tablet, Take 1 tablet (10 mg total) by mouth nightly, Disp: 90 tablet,Rfl: 1 tacrolimus XR (ENVARSUS XR) 1 mg tablet extended release 24 hr, Take 5 tablets (5 mg total) by mouth daily, Disp: 150 tablet, Rfl: 11 PHYSICAL EXAM BP 134/73 Pulse 67 Temp 36.8 ??C (98.2 ??F) Ht 149.9 cm (4' 11) Wt 43 kg (94 lb 12.8 oz) LMP (LMP Unknown) BMI 19.15 kg/m?? Generally: no acute distress; breathing comfortably HEENT: sclera anicteric, mucus membranes moist Lungs: denies SOB Cardiovascular: denies CP or palpitations Abdomen: soft and not tender, not distended, normal active bowel sounds. Allograft is in the right lower quadrant without tenderness or bruit over the allograft site. Extremities are without clubbing, cyanosis or edema. Neurologically without significant tremor on exam. Psych: appropriate mood and affect. Skin no rash LABORATORY VALUES Chem/LFT Lab History Latest Ref Rng & Units 03/07/2025 12:22 03/28/2025 08:33 05/23/2025 08:29 05/24/2025 09:23 Labs-Chem/LFT SCRIBED Alanine Transaminase (ALT) 7 - 45 Units/L 30 SCRIBED Potassium 3.5 - 5.1 mmol/L 3.7 4.9 4.4 SCRIBED Creatinine 0.55 - 1.02 mg/dL 0.98 0.83 0.85 CrCl- Actual Body Weight (Cockcroft-Gault) 40.7 48.1 47 Hematology Lab History Latest Ref Rng & Units 02/03/2025 10:37 03/07/2025 12:22 03/28/2025 08:33 05/23/2025 08:29 Labs - Hematology SCRIBED Hematocrit 38.0 - 48.0 % 41.1 39.8 42.0 41.6 SCRIBED Hemoglobin 12.0 - 16.0 g/dL 13.3 13.4 13.6 13.8 SCRIBED WBC 4.5 - 11.0 K/cumm 3.52 4.0 3.7 2.47 SCRIBED Platelets 130 - 400 K/cumm 276 247 311 258 Lab Results Component Value Date TACROTR 7.6 05/30/2024 I have reviewed care everywhere and outside notes ASSESSMENT AND PLAN: End-stage renal disease secondary to IgAN status post donor renal transplant on 04/02/2024 (Kidney), with ongoing monitoring for rejection. KDPI 41% Renal allograft function stable with respect to solute / water clearance based on labs from: 05/23/25 Creatinine 0.85 mg/dL Urine dip and UPCR today pending (ordered) Can do labs every 2 weeks given low WBC then when stable/increasing can do labs monthly High risk immunosuppression medication for organ transplantation, requiring regular intensive follow-up and monitoring: Mis-match info: MM, cPRA 92% Last FK level reviewed, 4.5 - 05/23/25 in CE (Target 4-7 ng/ml) Tacrolimus (Envarsus XR) 5 mg QD Prednisone 5 mg QD Mycophenolate sodium (Myfortic) 360 mg BID - reduce to 360 mg every day d/t low WBC Most recent WBC: 2.47 K/cumm on 05/23/25 High risk immunosuppression medication for organ transplantation, requiring regular intensive follow-up and monitoring for toxicity. Patient denies symptoms of toxicity from their immunosuppression including severe tremors, headache, or insomnia but has concern for infection. CKD-MBD/ Tertiary hyperparathyroidism Latest calcium: 10.7 mg/dL on 05/23/25 Latest iPTH: 200.3 pg/mL increase Cinacalcet (Sensipar) 60 mg QD Phospha 250 Neutral 250 mg BID - may DC History of osteoporosis Due to see BMD clinic 09/29/2025 Hyperlipidemia Latest lipid panel: Total cholesterol: 156 mg/dL, Triglycerides: 63 mg/dL, HDL: 85 mg/dL, LDL: 58 mg/dL on 05/23/25 Rosuvastatin (Crestor) 10 mg QHS Health maintenance Recommended applying sunscreen daily and following up with a straw hat machine operator for skin cancer surveillance. Recommended receiving the COVID Vaccine Series, Flu Vaccine NO LIVE VACCINES For Transplant patients. Recommended age-appropriate cancer screening: Colonoscopy: >45 years of age - due 05/2027 Pap Smear: Sexually active or 21-65 years of age Mammogram: 40 years of age or with family history of breast cancer RTC in 6 months * Mya Haskins - 06/01/2025 10:45 AM CDT Updated pt's Q3 s/o's at [facility]. Pt other s/o's are good until 04-10-2026. documented in this encounter Plan of Treatment Scheduled Orders Name Type Priority Associated Diagnoses Orde r Schedule Protein / creatinine ratio, urine, random Lab Routine Kidney replaced by transplant Expected: 06/04/2025, Expires: 06/01/2026 documented as of this encounter Visit Diagnoses Diagnosis Kidney replaced by transplant- Primary documented in this encounter Discontinued Medications Medication Sig Discontinue Reason Start Date End Da te Phospha 250 Neutral 250 mg tablet TAKE ONE TABLET BY MOUTH TWICE A DAY Therapy completed 05/11/2025 06/01/2025 cinacalcet (SENSIPAR) 30 mg tablet TAKE ONE TABLET BY MOUTH EVERY DAY 05/11/2025 06/01/2025 sod phos di, mono/K phos mono (D-[id number] ORAL) Take 250 mg by mouth daily Therapy completed 06/01/[address] (MYFORTIC) 360 mg EC tabletIndications:Preven tion of Kidney Transplant Rejection Take 1 tablet (360 mg total) by mouth 2 (two) times a day 03/01/2025 06/01/2025 documented as of this encounter Historical Medications * This list may reflect changes made after this encounter. sod phos di, mono/K phos mono (O-[id number]-OMGXWMA ORAL) Take 250 mg by mouth daily 06/01/2025 added in this encounter Orders Outpatient Referral Count Last Ordered Date Fir st Ordered Date AMB REFERRAL TO NEPHROLOGY 1 06/01/2025 documented in this encounter Care Teams Delivery Person Relationship Specialty Start Date End Date Jack Thompson DO [address] [address] PCP - General Internal Medicine 04/28/24 Erasmo Baird MD [address] [facility] [address] [address] Adaptive Physical Education Specialist Cardiology 09/27/19 Darío Peña MD [address] [facility] [address] [place] [address] Referring Physician Nephrology 12/09/23 Riya Byrd, RN [address] [address] Pediatric Nephrologist 04/04/24 documented as of this encounter
[2025-06-02] VITALS (10 sets, daily range): BP systolic 134–160; BP diastolic 67–83; PULSE 61–79; RESP 10–20; TEMP 36.5–36.7; O2SAT 97–100; BMI 19.3
--- OUTSIDE RECORDS SUMMARY | 2025-06-02 00:33 | XMS_ITS | Patient Health Record ---
Author Organization [address] [facility] Address [address] [facility] [address] [place] [address] Care Team Providers Care Vp Software Name Role Phone Judith Eagle Primary Care Provider Unavailab Franca Arnold Unavailable [phone] Allergies No Known Allergies Reason For Referral No Information Medications Medication SIG (Take, Route, Fr equency, Duration) Notes Start Date End Date Status Gentamicin Sulfate A ctive Tylenol Active Cody Caps Active Social History Tobacco Use: Social [...] Coverage End Date Medicare [address] [facility] [place] [id number] Lurdes Scott Self - patient is the insured for Life [address] [place] [phone] [id number] Lurdes Scott Self - patient is the insured Medical (General) History Medical History History ICD Code anemia, high cholesterol, hi gh blood pressure, kidney disease-dialysis, migraines Surgical History Surgery Date(Month/Year)
--- OUTSIDE RECORDS SUMMARY | 2025-06-02 00:33 | XMS_ITS ---
Author Organization [facility] Address [address] [place] [address] Care Team Providers Care Media Clerk Name Role Phone Erasmo Baird MD Unavailable [phone] Darío Peña MD Unavailable [phone] iRya Byrd RN Unavailable [phone] Jack Thompson DO Primary Care Provider [phone] Transplant Episode Kidney Recipient [facility] ([place], [place]) [facility] Organ Received: Left Kidney Transplanted on 04/02/2024 Marked as Active Follow-up on 04/02/2024 Reason: Transplanted at [facility] Kidney CoordinatorRiya Byrd RN Fax: N/A Email: N/A [place] Organ Diagnosis Organ Primary Contributory Kidney IgA [...] Fax Email Riya Byrd, RN Kidney Coordinator [phone] N/ A N/A Riya Byrd, recovery analystPlastic Mould Maker [phone] N/A N/A Mya Haskins Primary Practice Nurse N/A N/A N/A Claudia Edge Secondary Practice Nurse N/A N/A N/A Savanna Moe MD Transplant Finished Carpet Inspector [phone] N/A Eugenio Ledesma RN Secondary Coordinator Secondary Post Kidney Coordinator N/A N/A N/A Sara Alford Semiconductor Wafers Etch Operator [phone] N/A N/A Events Post-Transplant Pre-Transplant Admitted: 04/02/2024 Referred: 04/15/2017 Transplanted: 04/02/2024 Evaluation began: 7 Discharged: 04/05/2024 Committee: 11/10/2022 Center waitlisted: 7 Appointments (05/03/2025 - 07/03/2025) When With Visit Type Description 06/01/2025 Transplant - Cheng Nava Return Kidney replaced by transplant (Primary Dx) Dialysis History Dialysis History Start End Type Comments [place] 08/17/2017 04/02/2024 [facility]2017 04/02/2024 Continuous Ambul atory Peritoneal Dialysis [facility] [address] [facility] Center Phone Fax Address [facility] [phone] [address] [address] [facility] [address] [phone] [facility] [facility] [address]
--- OUTSIDE RECORDS SUMMARY | 2025-06-02 00:33 | XMS_ITS | Encounter Summary ---
Author Organization [facility] Address [address] [place] [address] Phone Care Team Providers Care Engineering Technician Name Role Phone Cinda Esposito MD Primary Care Provider [phone] Abhilash Soto RN Unavailable [phone] Erasmo Baird MD Unavailable [phone] Judith Eagle DO Primary Care Provider [phone] Cinda Huang RN Unavailable [phone] Jaquelin Alejandre RN Unavailable Unavailable Analisa Stahl RN Unavailable [phone] Stefani Boswell RN Unavailable UnavailKarol BeltranW Unavailable Un available Darío Peña MD Unavailable [phone] Unavailable [phone] Riya Byrd RN Unavailable [phone] Jack Thompson DO Primary Care Provider [phone] Encounter Details Date Type Department Care Team (Late st Contact Info) Description 03/19/2020 Orders Only [facility] Medicine Nephrology [address] [facility] 5th [place] [address] [place] [address] Unknown, Notinfile Social History Tobacco Use Types Packs/Day Years Used Date Smoking Tobacco: Former Comments Unknown Sex and Gender Information Value Date Recorded Sex Assigned at Not on file Legal Sex Female 2:33 AM GYROSCOPIC INSTRUMENT MECHANIC Gender Identity Female 03/24/2024 2:14 PM [...] COVID: Suspected 10/05/2021 10/05/2021 10/05/2021 8:32 AM GYROSCOPIC INSTRUMENT MECHANIC COVID: Suspected 10/28/2022 10/28/2022 10/28/2022 4:04 PM GYROSCOPIC INSTRUMENT MECHANIC COVID: Suspected 09/01/2023 09/01/2023 09/01/2023 6:54 AM GYROSCOPIC INSTRUMENT MECHANIC COVID: Suspected 01/03/2024 01/03/2024 01/03/2024 8:44 AM CDT documented as of this encounter Care Teams Engineering Technician Relationship Specialty Start Date End Date Cinda Esposito MD PCP - General 07/13/17 04/01/20 Judith Eagle DO [address] [facility] [place] [address] PCP - General Family Medicine 04/02/20 04/27/24 Jack Thompson DO [address] [address] PCP - General Internal Medicine 04/28/24 Abhilash Soto, RN [address] [address] [place] [address] Handle Bender 07/06/18 Erasmo Baird MD [address] [facility] [address] [place] [address] [address] Ore Dressing Engineer Cardiology 09/27/19 Cinda Huang RN [address] [facility] [address] [place] [id number] Secondary Pre Kidney Coordinator 11/28/22 01/17/23 Jaquelin Alejandre RN Registered Nurse Nephrology 12/02/22 04/04/24 Analisa Stahl, GLEN [address] [facility] [phone] [place], [place] [id number] Handle Bender 01/18/23 3 [employer], Stefani Baez RN Handle Bender 02/27/2304/03/24 Karol Metzger [facility] Industrial Truck Driver Nephrology 08/17/17 04/04/24 Darío Peña MD [address] [facility] 5[address] DIV IM NEPHROLOGY [place], [place] [id number] Referring Physician Nephrology 12/09/23 Franca Carrillo, ELLA [address] [facility] [address] [place], [place] [id number] Dietitian Nephrology 08/17/17 04/04/24 Riya Byrd RN [address] [id number] Handle Bender 04/04/24 documented as of this encounter
--- OUTSIDE RECORDS SUMMARY | 2025-06-02 00:33 | XMS_ITS ---
Author Organization [facility] Address [address] [place] [address] Care Team Providers Care Power Checker Name Role Phone Erasmo Baird MD Unavailable [phone] Darío Peña MD Unavailable [phone] Riya Byrd RN Unavailable Jack Thompson DO Primary Care Provider [phone] Dialysis Access Sites Type Status Location Placement [...] DNA, QUANTITATIVE Routine 03/07/2025 12:22 PM CDT HEPATITIS C RNA, QUANTITATIVE, PCR Routine 05/04/2024 [...] mouth daily 90 tablet 1 09/13 Active tacrolimus XR (ENVARSUS XR) 1 mg tablet extended release 24 hrIndications:immunos uppression Take 5 tablets (5 mg total) by mouth daily 150 tablet 03/08 Active rosuvastatin (CRESTOR) 10 mg tablet Take 1 tablet (10 mg total) by mouth nightly 90 tablet [address] (PROTONIX) 40 mg EC tablet TAKE ONE TABLET BY MOUTH EVERY DAY 30 tablet 2024 Active predniSONE (DELTASONE) 5 mg tablet TAKE ONE TABLET BY MOUTH EVERY DAY 30 tablet 11 2024 Active cinacalcet (SENSIPAR) 60 mg tabletIndications:Kid john replaced by transplant Take 1 tablet (60 mg total) by mouth daily 30 tablet 11 06/[address] (MYFORTIC) 360 mg EC tabletIndications:Pre vention of Kidney Transplant Rejection Take 1 tablet (360 mg total) by mouth daily 2024 Active sulfamethoxazole-trim ethoprim (BACTRIM DS) 800-160 [...] times a day with meals 05/[address] (MYFORTIC) 360 mg EC tabletIndications:Pre vention of Kidney Transplant Rejection Take 1 tablet (360 mg total) by mouth 2 (two) times a day 180 tablet 3 06/01 Discontinued Phospha 250 Neutral 250 mg tablet TAKE ONE TABLET BY MOUTH TWICE A DAY 60 tablet 11 06/01 Discontinued( Therapy completed) cinacalcet (SENSIPAR) 30 mg tablet TAKE ONE TABLET BY MOUTH EVERY DAY 30 tablet 11 06/01 Discontinued sulfamethoxazole-trim ethoprim (BACTRIM DS) 800-160 mg per tablet TAKE ONE TABLET BY MOUTH EVERY DAY 30 tablet 11 05/11 Discontinued( Therapy completed) sod phos di, mono/K phos mono (H-WLMR-[id number] ORAL) Take 250 mg by mouth daily 06/01 Discontinued( Therapy completed) Active Problems Patient Care Coordination No te Formatting of this note migh t be different from the original. Discharge Planning: Outpatient Labs: [facility]: [facility] Health: [facility] Home Health- delayed start Sat 04/09 LAB: [facility] P: [phone]; F: [phone] S/O'S MONTHLY: FK; Q3: ROUTINE (04-10-2026) Verbal Consent - spouse Jeff, and daughter [...] ESRD (end stage renal disease) on dialysis ([facility]) 10/18/2018 Assessment & Plan (05/17/2021 10:47 AM [...] Assessment & Plan (04/28/2024 12:29 PM CDT): home statin Assessment & Plan (04/27/2024 4:19 AM CDT): home statin Immunizations Immunization Administration Dates Next [...] materials from doctor or pharmacy Never 05/30/2024 [facility] Utilities Answer Date Recorded In the past 12 months has th e [employer], gas, oil, or water company threatened to shut off services in your [...] 04/27/2024 How often do you attend chur ch or jehovah's witness services? Never 04/27/2024 Do you belong to any clubs o r organizations such as christian groups, unions, fraternal or athletic groups, or [...] Date Recorded PHQ-2 Total Score 0 04/27/2024 [facility]ational Stress Questionnaire Answer Date Recorded [...] place to sleep or slept in a mcc (including now)? No 09/02/2023 Housing Stability Vital Sign Answer Tye e Recorded In the last 12 months, was t here a time when you were not able to pay the mortgage or rent on time? No 04/27/2024 In the past 12 months, how m any times have you moved where you were living? 2 04/27/2024 At any time in the past [address] [facility], were you homeless or living in a mcc (including now)? No 04/27/2024 Personal Safety Answer Date Recorded Have you ever been in or are you currently in a harmful physical or emotional relationship or is someone making you feel afraid or unsafe? Denies 04/27/2024 Comments No Sex and Gender Information Value Date Recorded Sex Assigned at Not on file Legal Sex Female 2:33 AM DEALERSHIP MANAGER Gender Identity Female 03/24/2024 2:14 PM CDT Sexual Orientation Not on file Last Filed Vital Signs Vital Sign Reading Time Taken Comments Blood Pressure 134/73 06/01/2025 10:39 AM CDT Pulse 67 06/01/2025 10:39 AM CDT Temperature 36.8 C (98.2 F) 06/01/2025 10:39 AM CDT Respiratory Rate 20 03/01/2025 9:07 AM CDT Oxygen Saturation 100% 05/30/2024 9:06 AM CDT Inhaled Oxygen Concentration - - Weight 43 kg (94 lb 12.8 oz) 06/01/2025 10:39 AM CDT Height 149.9 cm (4' 11) 06/01/2025 10:39 AM CDT Body Mass Index 19.15 06/01/2025 10:39 AM CDT Results * ALT (05/24/2025 9:23 AM CDT) SCRIBED Alanine Transaminase (ALT) 30 7 - 45 Units/L EXTERNAL LAB Blood Result [facility] Historical Provider MD LAB BLOOD ORDERABLES Edit ed Result - Final EXTERNAL LAB * Protein, total (05/23/2025 9:34 AM CDT) Blood Historical Provider MD LAB BLOOD ORDERABLES Radha l Result * Bilirubin, total (05/23/2025 9:25 AM CDT) SCRIBED Bilirubin, Total 0.9 0.2 - 1.2 mg/dL EXTERNAL LAB Blood Historical Provider LAB BLOOD ORDERABLES Edit ed Result - Final Performing Organization Address [facility] de Phone Number EXTERNAL LAB * AST (05/23/2025 9:22 AM CDT) SCRIBED Aspartate Transaminase (AST) 22 10 - 45 Units/L EXTERNAL LAB Blood Historical Provider LAB BLOOD ORDERABLES Edit ed Result - Final Performing Organization Address [facility] de Phone Number EXTERNAL LAB * (ABNORMAL) [...] ed Result - Final Performing Organization Address [facility] de Phone Number TXP NO LAB [...] ed Result - Final Performing Organization Address [facility]/ZIP Co de Phone Number TXP NO [...] 0 NONE EXTERNAL LAB Blood Historical Provider MD LAB BLOOD ORDERABLES Edit ed Result - Final EXTERNAL LAB * BK virus, DNA, quantitative Blood (03/28/2025 8:33 AM CDT) SCRIBED BK PCR Quant NOT DETECTED NOT DETECTED copies/mL [facility] Blood 03/28/2025 8:33 AM CDT Historical Provider LAB MICROBIOLOGY - GENERA L ORDERABLES Edited Result - Final Performing Organization Address [facility] de Phone Number [facility]ST * (ABNORMAL) CBC [...] ed Result - Final Performing Organization Address [facility] de Phone Number TXP NO LAB FOUND * (ABNORMAL) PTH (03/28/2025 8:33 AM CDT) SCRIBED iPTH 200.3(A) 18.4 - 80.1 pg/mL TXP NO LAB FOUND Blood 03/28/2025 8:3 3 AM CDT Historical Provider LAB BLOOD ORDERABLES Edit ed Result - Final Performing Organization Address [facility] de Phone Number TXP NO LAB FOUND [...] ed Result - Final Performing Organization Address [facility] Co de Phone Number TXP NO LAB FOUND * BK virus, DNA, quantitative Blood (03/07/2025 12:22 PM CDT) SCRIBED BK PCR Quant NOT DETECED NOT DETECTED copies/mL [facility] Blood 03/07/2025 12:2 2 PM CDT Historical Provider LAB MICROBIOLOGY - GENERA L ORDERABLES Final Result Performing Organization Address [facility] Co de Phone Number [facility] * (ABNORMAL) [...] BLOOD ORDERABLES Edit ed Result - Final TXP NO LAB FOUND * Tacrolimus level [...] ed Result - Final Performing Organization Address City/[facility]/ZIP Co de Phone Number TXP NO LAB FOUND * Hepatitis C (HCV) RNA PCR, quantitative Blood (05/04/2024 10:21 AM CDT) [facility] HCV RNA result Not Detected [facility] Comment: The quantifiable range of this assay is 15 IU/mL to 100,000,000 IU/mL (1.18 log IU/mL to 8.00 log IU/mL). Testing was performed by the LIZZ 6800 HCV Test ([employer] Testing performed at [facility] Current Interpretive Data was last revised on 2021 Blood 05/04/2024 10:2 1 AM CDT 05/04/2024 11:22 AM CDT Narrative [facility] - 05/05/2024 12:39 PM CDT This is a regulatory requirement. Please do not draw before the expected date. These labs must be drawn at a specific time point. Savanna Moe MD LAB MICROBIOLOGY - GENERAL ORDERABLES Final Result Performing Organization Address [facility] Co de Phone Number CERJ LUIS [facility] [place] [address] [facility] * Screening Mammogram 2D Bilateral (08/26/2018) Anatomical Region Laterality Modality Breast Bilateral Mammography 08/26/2018 Impressions 08/26/2018 11:16 AM [facility] [address] [place] [address] Impression: No mammographic findings of suggestive malignancy Historical Provider IMG MAMMO PROCEDURES Radha l Result from Last 3 Months or Most Recently Relevant to Health Maintenance
--- OUTSIDE RECORDS SUMMARY | 2025-06-02 00:33 | XMS_ITS | Encounter Summary ---
Author Organization [facility] Address [address] [place] [address] Care Team Providers Care Crop Setting Out Machine Operator Name Role Phone Erasmo Baird MD Unavailable [phone] Darío Peña MD Unavailable [phone] Riya Byrd RN Unavailable [phone] Jack Thompson DO Primary Care Provider [phone] Encounter Details Date Type Department Care Team (Late st Contact Info) Description 06/01/2025 Orders Only [facility] Transplant Kidney [address] [address] Mailstop [phone] [place] [address] Mya Haskins Transplanted kidney (Primary Dx); Hyperlipidemia, unspecified hyperlipidemia type Social History Tobacco Use Types Packs/Day Years [...] materials from doctor or pharmacy Never 05/30/2024 [facility] Utilities Answer Date Recorded In the past 12 months has th e [employer], [employer], oil, or water [employer] threatened to shut off services in your [...] often do you attend chur ch or catholic services? Never 04/27/2024 Do you belong to any clubs o r organizations such as synagogue groups, unions, fraternal or athletic groups, or [...] Date Recorded PHQ-2 Total Score 0 04/27/2024 [facility] - Occupational Stress [...] place to sleep or slept in a half-way (including now)? No 09/02/2023 Housing Stability Vital Sign Answer Tye e Recorded In the last 12 months, was t here a time when you were not able to pay the mortgage or rent on time? No 04/27/2024 In the past 12 months, how m any times have you moved where you were living? 2 04/27/2024 At any time in the past 12 m [place], were you homeless or living in a half-way (including now)? No 04/27/2024 Personal Safety Answer Date Recorded Have you ever been in or are you currently in a harmful physical or emotional relationship or is someone making you feel afraid or unsafe? Denies 04/27/2024 Comments No Sex and Gender Information Value Date Recorded Sex Assigned at Not on file Legal Sex Female 2:33 AM WATERPROOFER Gender Identity Female 03/24/2024 2:14 PM CDT Sexual Orientation Not on file documented as of this encounter Plan of Treatment Scheduled Orders Name Type Priority Associated Diagnoses Orde r Schedule Lipid panel Lab Routine Transplanted kidney Hyperlipidemia, unspecified hyperlipidemia type EVERY 12 WEEKS for 4 Occurrences starting 06/01/2025 until 06/01/2026 Hepatic function panel Lab Routine Transplanted kidney EVERY 12 WEEKS for 4 Occurrences starting 06/01/2025 until 06/01/2026 documented as of this encounter Visit Diagnoses Diagnosis Transplanted kidney- Primary Kidney replaced by transplant Hyperlipidemia, unspecified hyperlipidemia type documented in this encounter Care Teams Crop Setting Out Machine Operator Relationship Specialty Start Date End Date Jack Thompson DO [address] [address] PCP - General Internal Medicine 04/28/24 Erasmo Baird MD [address] [facility] [address] [address] Senior Technical Manager Cardiology 09/27/19 Darío Peña MD [address] [place] [address] Referring Physician Nephrology 12/09/23 Riya Byrd, RN [address] [address] Mold Sheet Cleaner 04/04/24 documented as of this encounter
--- OUTSIDE RECORDS SUMMARY | 2025-06-02 00:34 | XMS_ITS | Clinical Summary ---
Author Organization [facility] Address [address] [place] [address] Care Team Providers Care Booky Name Role Phone Erasmo Baird MD Unavailable [phone] Darío Peña MD Unavailable [phone] Riya Byrd RN Unavailable Jack Thompson DO Primary Care Provider [phone] Allergies Active Allergy Reactions Criticality Noted Date [...] MOUTH TWICE A DAY 60 tablet 11 2024 10/02 /2025 Discontinued( Therapy completed) cinacalcet (SENSIPAR) 30 mg tablet TAKE ONE TABLET BY MOUTH EVERY DAY 30 tablet 06/01 Discontinued sulfamethoxazole-trim ethoprim (BACTRIM DS) 800-160 mg per tablet TAKE ONE TABLET BY MOUTH EVERY DAY 30 tablet 05/11 Discontinued( Therapy completed) sod phos di, mono/K phos mono (I-GDHU-[id number] ORAL) Take 250 mg by mouth daily 06/01 Discontinued( Therapy completed) Active Problems Patient Care Coordination No te Formatting of this note migh t be different from the original. Discharge Planning: [facility] Labs[facility] [place] [facility]- delayed start Sat 04/09 LAB: [facility] P: [phone]; F: [phone] S/O'S MONTHLY: FK; Q3: ROUTINE (04-10-2026) Verbal [...] ESRD (end stage renal disease) on dialysis ([facility]) 10/18/2018 Assessment & Plan (05/17/2021 10:47 AM [...] Date Resolved Date Hypertensive crisis 06/23/2022 10/30/19 Hyponatremia 06/23/2022 10/29/2022 Mixed hyperlipidemia 12/10/2021 023 [...] ab/p 05/09 without acute process. Cultures from [place] [facility] 05/10 is growing enterobacter cloacae species. [...] Encounters Date Type Department Care Team Description 06/01/2025 10:45 AM CDT Office Visit [facility] Medicine Nephrology [address] [facility] 5th [place] [address] [place] [address] Isidro Nava MD Kidney replaced by transplant (Primary Dx) 06/01/2025 Orders Only [facility] Transplant Kidney [address] [facility] [address] Mailstop [phone] [place] [address] Mya Haskins Transplanted kidney (Primary Dx); Hyperlipidemia, unspecified hyperlipidemia type 05/24/2025 Orders Only [facility] Cardiology [address] [facility] [address] [place] [address] Provider, MD Yoav 04/10/2025 Orders Only [facility] Transplant Kidney [address] [facility] [address] Mailstop [phone] [place] [address] Mya Haskins Transplanted kidney (Primary Dx); Encounter for long-term (current) use of medications 03/29/2025 Telephone [facility] Transplant Kidney [address] [facility] [address] Mailstop [phone] [place] [address] Riya Byrd RN 03/07/2025 Orders Only [facility] Transplant Kidney [address] [facility] [address] Mailstop [phone] [place] [address] Riya Byrd RN Kidney replaced by transplant (Primary Dx) from Last 3 Months Immunizations Immunization Administration [...] materials from doctor or pharmacy Never 05/30/2024 [facility] Utilities Answer Date Recorded In the past 12 months has e [employer], or water [employer] threatened to shut off services in your [...] How often do you attend chur or caodaism services? Never 04/27/2024 Do you belong to any clubs o r organizations such as denominational groups, unions, fraternal or athletic groups, or [...] Recorded PHQ-2 Total Score 0 04/27/2024 [facility] - Occupational Stress [...] place to sleep or slept in a alf (including now)? No 09/02/2023 Housing Stability Vital Sign Answer Tye e Recorded In the last 12 months, was t here a time when you were not able to pay the mortgage or rent on time? No 04/27/2024 In the past 12 months, how m any times have you moved where you were living? 2 04/27/2024 At any time in the past 12 m [facility], were you homeless or living in a alf (including now)? No 04/27/2024 Personal Safety Answer Date Recorded Have you ever been in or are you currently in a harmful physical or emotional relationship or is someone making you feel afraid or unsafe? Denies 04/27/2024 Comments No Sex and Gender Information Value Date Recorded Sex Assigned at Not on file Legal Sex Female 2:33 AM SOUS CHEF Gender Identity Female 03/24/2024 2:14 PM CDT [...] Mass Index 19.15 06/01/2025 10:39 AM CDT Plan of Treatment Health Maintenance [...] 07/02/2021, 11/23/2020, 10/29/2020 Influenza Vaccine (#1) 2025 3, 06/05/2022, 06/04/2021, Additional history exists Breast Cancer Screening-Mammogram 01/27/2026 01/27/2025, 01/27/2025, 08/21/2023, Additional history exists Hepatitis B Screening Completed 04/02/2024 , 12/04/2017, 08/12/2017, Additional history exists Hepatitis C Screening Completed 05/04/2024 , 04/02/2024, 04/02/2024, Additional history exists Medical Devices Implanted Type Area Patternmaker Apprentice Metal Device Identifier Shelf Expiration Date Model / Serial / Lot Peritoneal Dialysis Catheter Explanted:Qty: 1 on 04/02/2024 by Shanelle Royal MD N/A: Abdomen Explanted Type Area Patternmaker Apprentice Metal Device Identifier Shelf Expiration Date Model / Serial / Lot [employer] Stent Ureteral Set Double Pigtail Radiopaque Tip Univers[employer] [id number] Polyurethane Hydrophilic Coated [id number] - Sna - [id number] Implanted:Qty: 1 on 04/02/2024 by Shanelle Royal MD at [facility] Explanted:Qty: 1 on 05/04/2024 by Zoey Chin Rai, NP Stent Right: Transplanted Ureter [employer] [id number] 12/01/2026 [id number] / NA / [id number] Procedures Procedure Name Priority Date/Time Associated Diagnosis [...] - 45 Units/L EXTERNAL LAB Blood Result [facility] Historical Provider MD LAB BLOOD ORDERABLES Edit ed Result - Final EXTERNAL LAB * Protein, total (05/23/2025 9:34 AM CDT) Blood Historical Provider MD LAB BLOOD ORDERABLES Radha l Result * Bilirubin, total (05/23/2025 9:25 AM CDT) SCRIBED Bilirubin, Total 0.9 0.2 - 1.2 mg/dL EXTERNAL LAB Blood [facility] Provider MD LAB BLOOD ORDERABLES Edit ed Result - Final Performing Organization Address [facility] de Phone Number EXTERNAL LAB * AST (05/23/2025 9:22 AM CDT) SCRIBED Aspartate Transaminase (AST) 22 10 - 45 Units/L EXTERNAL LAB Blood [facility] Provider MD LAB BLOOD ORDERABLES Edit ed Result - Final Performing Organization Address [facility] de Phone Number EXTERNAL LAB * (ABNORMAL) [...] LAB FOUND Blood 05/23/2025 8:29 AM CDT [facility] Provider MD LAB BLOOD ORDERABLES Edit ed Result - Final Performing Organization Address [facility] de Phone Number TXP NO LAB [...] ed Result - Final Performing Organization Address City/[facility]/ZIP Co de Phone Number TXP NO [...] Edited Result - Final Performing Organization Address [facility] de Phone Number [facility] * (ABNORMAL) CBC [...] LAB FOUND Blood 03/28/2025 8:33 AM CDT [facility] Provider LAB BLOOD ORDERABLES Edit ed Result - Final Performing Organization Address [facility] de Phone Number TXP NO LAB FOUND * (ABNORMAL) PTH (03/28/2025 8:33 AM CDT) SCRIBED iPTH 200.3(A) 18.4 - 80.1 pg/mL TXP NO LAB FOUND Blood 03/28/2025 8:33 AM CDT Historical Provider LAB BLOOD ORDERABLES Edit ed Result - Final Performing Organization Address [facility] de Phone Number TXP NO LAB FOUND [...] ed Result - Final Performing Organization Address [facility] de Phone Number TXP NO LAB FOUND * BK virus, DNA, quantitative Blood (03/07/2025 12:22 PM CDT) SCRIBED BK PCR Quant NOT DETECED NOT DETECTED copies/mL [facility] Blood 03/07/2025 12:2 2 PM CDT Historical Provider LAB MICROBIOLOGY - GENERA L ORDERABLES Final Result Performing Organization Address [facility] Co de Phone Number QUEST [...] FOUND Blood 03/07/2025 12:2 2 PM CDT us Historical Provider LAB BLOOD ORDERABLES Edit ed [...] ed Result - Final Performing Organization Address City/[facility]/ZIP Co de Phone Number TXP NO LAB FOUND * Hepatitis C (HCV) RNA PCR, quantitative Blood (05/04/2024 10:21 AM CDT) [facility] HCV RNA result Not Detected [facility] Comment: The quantifiable range of this assay is 15 IU/mL to 100,000,000 IU/mL (1.18 log IU/mL to 8.00 log IU/mL). Testing was performed by the LIZZ 6800 HCV Test ([employer] Testing performed at [facility] Current Interpretive Data was last revised on 2021 Blood 05/04/2024 10:2 1 AM CDT 05/04/2024 11:22 AM CDT Narrative [facility] - 05/05/2024 12:39 PM CDT This is a regulatory requirement. Please do not draw before the expected date. These labs must be drawn at a specific time point. Savanna Moe MD LAB MICROBIOLOGY - GENERAL ORDERABLES Final Result Performing Organization Address City/[facility] Co de Phone Number [facility] [place] [address] [facility] * Screening Mammogram 2D Bilateral (08/26/2018) Anatomical Region Laterality Modality Breast Bilateral Mammography 08/26/2018 Impressions 08/26/2018 11:16 AM SOUS CHEF [facility] [address] [place] [address] Impression: No mammographic findings of suggestive malignancy Historical Provider IMG MAMMO PROCEDURES Radha l Result from Last 3 Months or Most Recently Relevant to Health Maintenance Insurance MEDICARE [employer] CHOICE MEDICARE PPO [employer] CHO[employer] [place] [address] Advance Directives For more information, please contact: [phone] * Full Code (Latest Code Status on [...] Scott Daughter Health Care Agent Care Teams Booky Relationship Specialty Start Date End Date Jack Thompson DO [address] [address] PCP - General Internal Medicine 04/28/24 Erasmo Baird MD [address] [facility] [place] [address] Aquaculture Farm Manager Cardiology 09/27/19 Darío Peña MD [address] [facility] [address] [place] [address] Referring Physician Nephrology 12/09/23 Riya Byrd, RN [address] [address] Product Expert 04/04/24
[2025-06-02] MEDS: LACTATED RINGERS 1,000 ML 30 ML IV CONT (06:45)
[2025-06-02] MEDS: TRANEXAMIC ACID 1,000MG/ISO100 1,000 MG/100 ML BAG 200 MG IVPB (06:45)
--- NOTE | 2025-06-02 07:04 | WPDHPUPDATE1 ---
History and Physical Update Update Date/Time: 06/02/25 07:04 History and Physical has been reviewed, including an updated exam of the patient. There are NO changes in the patient's condition. Risks, benefits, and alternatives have been discussed and questions answered. Patient agrees to proceed with procedure.
--- NOTE | 2025-06-02 07:04 | W.PM.PROC2 ---
Procedure Note - Detailed Date of Procedure 06/02/25 Pre-op Diagnosis micromastia Post-op Diagnosis Same Procedure Performed Bilateral augmentation mammaplasty Surgeon Sonido Kay MD Anesthesia General Findings Bilateral Jeaneth Olmos SoftTouch 330cc Right: REF# [id number] SN [id number] Left: REF# [id number] SN [id number] Description of Procedure She is here today for bilateral breast augmentation. Previously and again today the risks, benefits, alternatives were discussed in extensive detail. I wanted her to be very realistic about the risks involved as well as expectations. We discussed aftercare and what to monitor for. Made sure answered all of her questions to her satisfaction today and consent was obtained. Marked in the preoperative holding area with their verification. The patient was taken to the operating room placed supine on the operating table. Anesthesia was provided by anesthesiology. A surgical time-out was taken. We cleansed the skin and 1% lidocaine and 0.25% Marcaine with epinephrine was used anesthetize as a field block. She was prepped and draped in a standard sterile fashion. Tegaderm nipple Moser were placed. A 15 blade used to make an incision along the inframammary fold. Dissection was continued at 45 degree angle until the chest wall as identified. I incised the pectoralis major along its inferior border and completely released the inferior border leaving the medial border intact. I created a subpectoral pocket in the appropriate dimensions based on our preoperative planning for the implant. I then copiously irrigated with saline solution and verified a strict hemostasis. Next the use a triple antibiotic and Betadine containing solution to irrigate the pocket. I washed my gloves with the triple antibiotic and Betadine solution. We washed the implant immediately upon opening it with this solution and only opened it when we needed it. I used implant funnel and no-touch technique. The implant was introduced into the pocket using the funnel. Having verified positioning of the implant this was closed using 2-0 PDS followed by 3-0 Monocryl in a running subcuticular 4-0 Monocryl followed by tissue glue. Fluffs and surgical bra were placed. Patient was awoke and taken to PACU without difficulty. All instrument sponge counts were correct at the end of the case. Estimated Blood Loss 20 Drains No Packing No Pathology None sent Complications No immediate complications Condition Stable Disposition PACU
--- NOTE | 2025-06-02 07:24 | WPDANESEPPF ---
Anes - Initial Pre Proc Eval Procedure: Operation Date: 06/02/25 07:30 Proposed Procedures p Bilateral Breast Augmentation - Sonido Kay MD Date/Time: 06/02/25 07:24 Surgeon: Sonido Kay MD Pre Op Diagnosis: micromastia Patient Data Age: 64 Gender: F Height: 1.5 m Weight: 43.5 kg Last Vital Signs Temp 98.1 F 06/02/25 07:12 Pulse 65 06/02/25 07:12 BP 159/69 H 06/02/25 07:12 Pulse Ox 100 06/02/25 07:12 O2 Del Method Room Air 06/02/25 07:12 Allergies Allergy/AdvReac Type Severity Reaction Status Date / Time lisinopril Allergy Severe Rash Verified 06/02/25 07:11 Home Medications ?Medication ?Instructions ?Recorded ?Confirmed ?Type amlodipine 10 mg tablet 10 mg PO DAILY 05/19/25 06/02/25 History aspirin 81 mg tablet,delayed 81 mg PO DAILY 05/19/25 05/19/25 History release (Adult Low Dose Aspirin) cholecalciferol (vitamin D3) 125 125 mcg PO DAILY 05/19/25 05/19/25 History mcg (5,000 unit) tablet (Vitamin D3) cinacalcet 30 mg tablet 30 mg PO DAILY 05/19/25 05/19/25 History diphenhydramine HCl 25 mg tablet 25 mg PO Q6-8H PRN allergy symptoms 05/19/25 05/19/25 History (Allergy Medicine) docusate sodium 100 mg capsule 100 mg PO DAILY PRN constipation 05/19/25 05/19/25 History (Colace) mycophenolate sodium 360 mg 360 mg PO DAILY 05/19/25 06/02/25 History tablet,delayed release pantoprazole 40 mg tablet,delayed 40 mg PO DAILY 05/19/25 05/19/25 History release prednisone 5 mg tablet 5 mg PO DAILY 05/19/25 06/02/25 History rosuvastatin 10 mg tablet 10 mg PO DAILY 05/19/25 05/19/25 History sodium di- and 1 tablet PO DAILY 05/19/25 05/19/25 History monophosphate-potassium phos monobasic 250 mg tablet (Phospha Neutral) tacrolimus 1 mg tablet,extended 5 mg PO DAILY 05/19/25 05/19/25 History release 24 hr (Envarsus XR) Patient hx anesthesia problems: none Family hx anesthesia problems: none Results Review: All pre-operative results and documents have been reviewed as part of the pre-operative evaluation. [facility] Social History Social History Years smoked: 3 Smoking status: Former smoker Tobacco type: cigarettes Smoking end date: 05/19/90 Alcohol intake: former Living arrangements: with family Spiritual care concerns: No Anes - Eval Final PreProcedure Day of Procedure 06/02/25 07:24 Patient weight: normal Heart: regular rate and rhythm Lungs: clear to auscultation Airway: Mallampati scale class II Neurological: alert and oriented Last oral intake: >/= 8 hours ASA classification: III Emergent: no Anesthetic plan: proceed Anesthesia type and monitoring: general LMA and standard monitoring Results Review: All pre-operative results and documents have been reviewed as part of the pre-operative evaluation. Informed Consent: The patient's anesthetic plan and its attendant risks and benefits were discussed with the patient/family/POA. Questions were solicited and answers provided to the satisfaction of the patient/family/POA.
[2025-06-02] MEDS: ceFAZolin 2 GM in SODIUM CHLORIDE 0.9% IV 50 ML 100 ML IVPB (07:30)
[2025-06-02] MEDS: LIDO 1%/EPINEPHRINE 1:100,000 50 ML VIAL 30 ML INFILTRATE (07:30)
[2025-06-02] MEDS: fentaNYL CITRATE INJ (*CRX) 100 MCG/2 ML VIAL 25 MCG IV PUSH ×3 (08:46→09:00)
[2025-06-02] MEDS: oxyCODONE HCL (*CRX) 5 MG TAB IR PO (10:05)
== END 2025-06-02 10:53 | disposition home or self-care (01) ==
PROVIDERS: Visit Provider Surgery Plastic and Reconstructive Surgery
PROC: (CPT 19325; principal; 2025-06-02 07:30)
DX: Z41.1 Encounter for cosmetic surgery (principal); N64.81 Ptosis of breast; N64.82 Hypoplasia of breast; R01.1 Cardiac murmur, unspecified; E78.00 Pure hypercholesterolemia, unspecified; I12.9 Hypertensive chronic kidney disease with stage 1 through stage 4 chronic kidney disease, or unspecified chronic kidney disease; N18.9 Chronic kidney disease, unspecified; Z79.82 Long term (current) use of aspirin; Z79.52 Long term (current) use of systemic steroids; Z94.0 Kidney transplant status; Z87.891 Personal history of nicotine dependence
CPT/HCPCS: 19325; J0690; A9270; J1580; J2003; J2004; J2250; J2405; J2704; J3010; J3290; J7120